=== PATIENT | male | born 1955 | race Caucasian/White ===

== ENCOUNTER 2016-07-17 08:55 | Emergency (ER) | payer OTHER ==
[2016-07-17] MEDS ORDERED: NS 0.9% 1000 ML* 1,000 ML IV ONE (12:24)
[2016-07-17 12:58] LABS: Hematocrit 42 % (42-52); Hemoglobin 14.4 g/dl (14.0-18.0); Mean Corpuscular HGB Conc 34 g/dl (31-36); Mean Corpuscular Hemoglobin 31 pg (27-31); Mean Corpuscular Volume 91 fL (80-94); Mean Platelet Volume 7 um3 (7.4-10.4); Red Blood Count 4.63 10^6/ul (4.0-5.4); Red Cell Distribution Width 13 % (10.5-15); White Blood Count 9.1 10^3/ul (3.5-10.8)
[2016-07-17 13:16] LABS: Urine Bacteria Absent (Absent); Urine Bilirubin Negative (Negative); Urine Glucose Negative (Negative); Urine Nitrite Negative (Negative)
[2016-07-17 13:18] LABS: ALT 20 U/L (7-52); AST 19 U/L (13-39); Albumin 4.3 g/dL (3.2-5.2); Alkaline Phosphatase 50 U/L (34-104); Amylase 44 U/L (29-103); Anion Gap 7 mmol/L (2-11); Blood Urea Nitrogen 7 mg/dL (6-24); C Reactive Protein < 1.00 mg/L (< 5.00); CO2 Carbon Dioxide 28 mmol/L (22-32); Calcium 9.4 mg/dL (8.6-10.3); Chloride 98 mmol/L (101-111); EGFR African American 115.5 (>60); EGFR Non-African American 89.8 (>60); Glucose 97 mg/dL (70-100); Lipase 38 U/L (11.0-82.0); Potassium 3.8 mmol/L (3.5-5.0); Sodium 133 mmol/L (133-145); Total Protein 7.3 g/dL (6.4-8.9)
[2016-07-17] MEDS ORDERED: Iohexol 300* (CONTRAST) 10 ML SDV IV ONE (13:43)
--- NOTE | 2016-07-17 14:50 | RAD ---
INDICATION: Abdominal pain and body aches. Recent antibiotics for UTI. Diagnosed with pancreatitis by primary care physician. COMPARISON: July 08, 2009 TECHNIQUE: Multidetector CT images were obtained from the lung bases to the ischial tuberosities with 105 mL Omnipaque 300 IV and oral contrast. Multiplanar reformation. REPORT: Mild dependent atelectasis at the RIGHT lung base. Unremarkable liver and gallbladder. Normal morphology pancreas. No focal pancreatic lesion, duct dilatation, or peripancreatic inflammatory change. Unremarkable spleen. Negative for CT abnormality of the upper GI. Mild gas and enteric contrast distention of jejunal small bowel loops in the LEFT abdomen without a suspicious transition point or obstruction to distal propagation of contrast most consistent with transient physiologic distention due to the enteric contrast bolus. Mild ileus not excluded. No focal small bowel lesions evident. Unremarkable inferiorly extending appendix. Mild diverticulosis of the sigmoid colon without findings of diverticulitis. Enteric contrast extends to the hepatic flexure of the colon. Negative for ascites or free air. Small fat-containing umbilical hernia without inflammatory change. Small fat-containing direct appearing RIGHT inguinal hernia without inflammatory change. 1.5 cm diameter RIGHT adrenal nodule only minimally increased in size compared with the 2009 exam. 1.5 x 1.3 cm LEFT adrenal nodule with only mild interval increase in size compared with the 2009 exam. Based on relative low density and absence of significant interval change since 2009 these lesions are consistent with benign adenomas. Symmetric renal contrast excretion. No focal renal lesions or hydronephrosis. Unremarkable ureters and urinary bladder. Symmetric seminal vesicles. Negative for lymphadenopathy. Mild atherosclerotic plaque of the abdominal aorta without aortic aneurysm. 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 Calcific and noncalcific plaque results in approximate 50% stenosis of the lumen at the level of the LEFT common iliac artery aneurysm. Multilevel lower thoracic and lumbar sacral spine small Schmorl node endplate herniations. Multilevel degenerative spondylosis and facet joint osteoarthritis. Few small pelvic bone islands. Negative for fracture or suspicious focal osseous lesion. IMPRESSION: 1. No abnormality of the pancreas or peripancreatic soft tissues to raise concern for pancreatitis. 2. Mild gas and enteric contrast distention of jejunal small bowel loops in the LEFT abdomen without a suspicious transition point or obstruction to distal propagation of contrast most consistent with transient physiologic distention due to the enteric contrast bolus. Mild ileus not excluded. 3. Normal appendix documented. 4. Mild colonic diverticulosis without findings of diverticulitis. 5. Small fat-containing direct appearing RIGHT inguinal hernia without inflammatory change. 6. Bilateral adrenal nodules most consistent with benign adenomas based on only mild interval change compared with the remote exam of July 08, 2009. 6. 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
[2016-07-17] MEDS ORDERED: methylPREDNISolone 125 MG* 2 ML VIAL IV ONE (14:54)
[2016-07-17] MEDS ORDERED: Albuterol/Ipratropium NEB.SOL* Albuterol 2.5 MG/Ipratropium 0.5 MG 3 ML INH SCH (15:00)
--- NOTE | 2016-07-17 15:26 | ED ---
Real Ram Rebecca, scribed for Austen Garcia MD on 07/17/16 at 1207 . Abdominal Pain/Male - HPI Summary HPI Summary: Pt is a 60 y/o M who presents to ED c/o abd pain. Pain began gradually 6 weeks ago and has been intermittent since onset. Pain is in the RLQ and LLQ without radiation and is currently ranked 7/10. Pain is characterized as cramping. Sx aggravated and alleviated by nothing. C/o N, bloating, decreased appetite and diffuse body aches. Denies V/D, constipation. No PSHx of appy or cholecystectomy. PSHx hernia repair. 1 month ago pt was treated for dx of UTI by [facility] with Abx and sx began to resolve, then returned. 3.5 weeks ago, pt was evaluated by PCP (Dr. Baeza) with a dx of prostatitis and was administered Abx for 2 weeks. That course of Abx ended 1.5 weeks ago and pt was feeling better. Current episode returned 1 week ago. - History of Current Complaint Chief Complaint: EDAbdPain Stated Complaint: BODY ACHES Time Seen by Provider: 07/17/16 12:06 Hx Obtained From: Patient Onset/Duration: Gradual Onset, Lasting Weeks - 6 weeks, Still Present Timing: Intermittent Severity Initially: Moderate Severity Currently: Moderate Pain Intensity: 7 Pain Scale Used: 0-10 Numeric Location: Discrete At: RLQ, Discrete At: LLQ Radiates: No Character: Cramping Aggravating Factor(s): Nothing Alleviating Factor(s): Nothing Associated Signs And Symptoms: Positive: Decreased Appetite, Nausea, Other - Bloating, diffuse body aches. Negative: Constipation, Vomiting, Diarrhea - Allergies/Home Medications Allergies/Adverse Reactions: Allergies Allergy/AdvReac Type Severity Reaction Status Date / Time No Known Allergies Allergy Verified 06/04/16 13:51 PMH/Surg Hx/FS Hx/Imm Hx Endocrine/Hematology History: Denies: Hx Diabetes GI History: Reports: Other GI Disorders - hernia s/p repair History: Denies: Hx Renal Disease - Surgical History Surgery Procedure, Year, and Place: CARPAL TUNNEL SURGERY, ELBOW SURGERY RT UPPER EXT, HERNIA REPAIR Infectious Disease History: No Infectious Disease History: Denies: Traveled Outside the [place] in Last 30 Days - Family History Known Family History: Negative: Cardiac Disease, Hypertension - Social History Alcohol Use: Daily Alcohol Amount: beer "amount varies" Hx Substance Use: No Substance Use Type: Reports: None Hx Tobacco Use: Yes Smoking Status (MU): Current Every Day Smoker Review of Systems Positive: Abdominal Pain - RLQ and LLQ, Nausea, Other - Bloating, decreased appetite; Denies constipation. Negative: Vomiting, Diarrhea Positive: Arthralgia - Diffuse body aches All Other Systems Reviewed And Are Negative: Yes Physical Exam - Summary Physical Exam Summary: VITAL SIGNS: Reviewed. GENERAL: Patient is a well developed and nourished male who is lying comfortable in the stretcher. Patient is not in any acute respiratory distress. HEAD AND FACE: Normocephalic and atraumatic. EYES: PERRLA, EOMI x 2, No injected conjunctiva. EARS: Hearing grossly intact. Ear canals and tympanic membranes are WNL. MOUTH: Oropharynx within normal limits. NECK: Supple, trachea is midline, no adenopathy, no JVD. CHEST: Symmetric, no tenderness at palpation LUNGS: Clear to auscultation bilaterally. No wheezing or crackles. CVS: RRR,, S1 and S2 present, no murmurs or gallops appreciated. ABDOMEN: Soft, diffuse abdomnal tenderness. . No signs of distention. Positive bowel sounds. No rebound no guarding, and no masses palpated. No abdominal bruit or pulsations. EXTREMITIES: FROM in all major joints, no edema, no cyanosis or clubbing. NEURO: Alert and oriented x 3. No acute neurological deficits. Speech is normal. SKIN: Dry and warm Vital Signs On Initial Exam: Initial Vitals Temp Pulse Resp BP Pulse Ox 98 F 92 16 149/67 98 07/17/16 08:57 07/17/16 08:57 07/17/16 08:57 07/17/16 08:57 07/17/16 08:57 Diagnostics - Vital Signs Vital Signs Temp Pulse Resp BP Pulse Ox 07/17/16 11:28 98.3 F 78 16 136/86 99 07/17/16 08:57 98 F 92 16 149/67 98 - Laboratory Result Diagrams: 07/17/16 12:31 07/17/16 12:31 Lab Statement: Any lab studies that have been ordered have been reviewed, and results considered in the medical decision making process. - CT CT Abd/Pel CT Interpretation Completed By: Radiologist - 1. No abnormality of the pancreas or peripancreatic soft tissues to raise concern for pancreatitis. 2. Mild gas and enteric contrast distention of jejunal small bowel loops in the LEFT abdomen without a suspicious transition point or obstruction to distal propagation of contrast most consistent with transient physiologic distention due to the enteric contrast bolus. Mild ileus not excluded. 3. Normal appendix documented. 4. Mild colonic diverticulosis without findings of diverticulitis. 5. Small fat-containing direct appearing RIGHT inguinal hernia without inflammatory change. 6. Bilateral adrenal nodules most consistent with benign adenomas based on only mild interval change compared with the remote exam of July 08, 2009. Re-Evaluation - Re-Evaluation First Eval Re-Evaluation Time: 15:16 Change: Improved Comment: Pt is feeling significantly better. Abdominal Pain Fem Course/Dx - Course Assessment/Plan: 60 y/o M who presents to ED with a CC of intermittent abdominal pain for approximately 1.5 months. He denies diarrhea or constipation. Denies any N/V. Pain is more discomfort than tenderness. Blood work is found to be within normal limits. I decided to do Abd/Pel CT to r/o any type of intra-abdominal pathologies such as diverticulitis, colitis, or prostatitis seeing as pt has Hx of prostatitis. Pt declined a rectal exam. Abd/ Pel CT shows mild fusiform aneurysm of 1.7 cm in the L common artery. The rest of the results are as above. At this point the pt is feeling better. Will follow up with PCP and cloth carrier. I discussed all the findings and test results with the patient and patient. Patient was instructed to return to the emergency room immediately if any of the symptoms return or worsens. They understand and agree. They were explained the possibility of an early abdominal pathology which was not detected at this time despite the physical exam and testing. They understand and agree. Abdominal exam before discharge: Soft,NT. No signs of distention. BS present. No rebound no guarding, and no masses palpated. Patient is alert and oriented. Patient is hemodynamically stable. Patient is to follow up with primary care physician in the next 24 hours. Patient and patients parents agree and understands. - Diagnoses Differential Diagnosis/HQI/PQRI: Constipation, Diverticulitis Provider Diagnoses: Abdominal pain, AAA (abdominal aortic aneurysm), Ileus Discharge - Discharge Plan Condition: Stable Disposition: HOME Patient Education Materials: Abdominal Aortic Aneurysm (GEN), Ileus (ED) Forms: *Work Release Referrals: Alistair Moreau MD [Medical Doctor] - 3 Days (Follow up with Dr. Moreau, cloth carrier, within the next 3 days. ) Miriam Baeza NP [Primary Care Provider] - 3 Days (Follow up with Dr. Baeza, your primary care physician, within the next 3 days. ) Additional Instructions: Return to the ED for any returning or worsening symptoms. The documentation as recorded by the Real watkins Rebecca accurately reflects the service I personally performed and the decisions made by , Austen Garcia MD.
[2016-07-17 15:45] VITALS: BP 132/80
== END 2016-07-17 15:44 | disposition home or self-care (01) ==
LOC: ED 08:55
DX: R10.30 Lower abdominal pain, unspecified (principal); I71.4 Abdominal aortic aneurysm, without rupture; F17.200 Nicotine dependence, unspecified, uncomplicated; R11.0 Nausea; K56.7 Ileus, unspecified
CPT/HCPCS: 36415; 74177; 80053; 81003; 81015; 82150; 83605; 83690; 85025; 86140; 87086; 96360; 99282; Q9967

== ENCOUNTER 2018-04-06 15:48 | Emergency (ER) | payer OTHER ==
--- NOTE | 2018-04-06 17:13 | RAD ---
INDICATION: Back pain shortness of breath x1 week COMPARISON: Chest x-ray dated July 08, 2009 TECHNIQUE: PA and lateral views of the chest were obtained. FINDINGS: The heart and mediastinum are normal in size and contour. There is been a mild increase in the reticulonodular density seen overlying the bilateral lungs relative to the 2009 chest x-ray. There is no focal or lobar consolidation. Visualized bones are normal for the patient's age. There is no radiographic evidence of free air beneath the diaphragm IMPRESSION: PARENCHYMAL DENSITIES OVERLYING THE BILATERAL LUNGS COULD BE DUE TO VASCULAR CONGESTION IN AN ACUTE PRESENTATION OR BE DUE TO EARLY INTERSTITIAL LUNG DISEASE AND A MORE CHRONIC PRESENTATION.
[2018-04-06 17:15] LABS: ABS Basophils 0.1 10^3/ul (0-0.2); ABS Eosinophils 0.1 10^3/ul (0-0.6); ABS Lymphocytes 1.6 10^3/ul (1.0-4.8); ABS Monocytes 0.7 10^3/ul (0-0.8); ABS Neutrophils 4.9 10^3/ul (1.5-7.7); ABS Nucleated RBC 0 10^3/ul; Eosinophil % 0.8 % (0-6); Hematocrit 39 % (42-52); Hemoglobin 13.4 g/dl (14.0-18.0); Lymphocyte % 21.2 % (25-47); Mean Corpuscular HGB Conc 34 g/dl (31-36); Mean Corpuscular Hemoglobin 32 pg (27-31); Mean Corpuscular Volume 93 fL (80-94); Mean Platelet Volume 7.3 um3 (7.4-10.4); Nucleated Red Blood Cells % 0.1; Platelet Count 262 10^3/ul (150-450); Red Blood Count 4.17 10^6/ul (4.00-5.40); Red Cell Distribution Width 14 % (10.5-15); White Blood Count 7.3 10^3/ul (3.5-10.8)
[2018-04-06 17:21] LABS: INR 0.96 (0.77-1.02)
--- NOTE | 2018-04-06 17:22 | ED ---
Shortness of Breath - HPI Summary HPI Summary: Patient complains of back pain bilaterally, intermittent exertional SOB, weakness, "feeling crappy" 2 weeks. 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 States back pain comes in waves that can produce nausea. Denies fever, cough, sore throat, CP, as V/D, abdominal pain, change in urine, change in BM, radiation of pain down the legs. Medical history is HTN for which she does not take medication. Also states he has history of "aneurysm" but does not remember details. Patient does not see PCP regularly. Patient is smoker, admits to daily EtOH less than a sixpack , denies illegal drug use - History of Current Complaint Chief Complaint: EDBackInjuryPain Time Seen by Provider: 04/06/18 16:09 Hx Obtained From: Patient Onset/Duration: Gradual Onset Timing: Intermittent Episodes Lasting: Current Severity: Moderate Dyspnea At: Exertion Associated Signs & Symptoms: Negative - Allergy/Home Medications Allergies/Adverse Reactions: Allergies Allergy/AdvReac Type Severity Reaction Status Date / Time No Known Allergies Allergy Verified 04/06/18 16:24 PMH/Surg Hx/FS Hx/Imm Hx Endocrine/Hematology History: Denies: Hx Anticoagulant Therapy, Hx Diabetes Cardiovascular History: Denies: Hx Cardiac Arrest GI History: Reports: Other GI Disorders - hernia s/p repair History: Denies: Hx Dialysis, Hx Renal Disease Neurological History: Denies: Hx CVA - Surgical History Surgery Procedure, Year, and Place: CARPAL TUNNEL SURGERY, ELBOW SURGERY RT UPPER EXT, HERNIA REPAIR - Immunization History Immunizations Up to Date: Yes Infectious Disease History: No Infectious Disease History: Denies: Traveled Outside the [place] in Last 30 Days - Family History Known Family History: Positive: None Negative: Cardiac Disease, Hypertension Family History: R & n/C - Social History Alcohol Use: Daily Alcohol Amount: beer "amount varies" Hx Substance Use: No Substance Use Type: Reports: None Hx Tobacco Use: Yes Smoking Status (MU): Current Every Day Smoker Review of Systems Constitutional: Negative Eyes: Negative ENT: Negative Cardiovascular: Negative Positive: Shortness Of Breath Gastrointestinal: Negative Genitourinary: Negative Musculoskeletal: Other Positive: Myalgia Skin: Negative Neurological: Negative Psychological: Normal All Other Systems Reviewed And Are Negative: Yes Physical Exam - Summary Physical Exam Summary: PMS intact distally in bilateral lower extremity is. Patient able to ambulate and move all extremities without indication of pain or weakness. No pain or tenderness to palpation of the paraspinal muscles. Patient flexes and extends at hips without indication of pain. Lung sounds clear to auscultation bilaterally. Sensation speaking in full sentences, no work of breathing noted. Patient calm, alert and oriented. Triage Information Reviewed: Yes Vital Signs On Initial Exam: Initial Vitals Temp Pulse Resp BP Pulse Ox 98.6 F 89 16 161/93 97 04/06/18 15:53 04/06/18 15:53 04/06/18 15:53 04/06/18 15:53 04/06/18 15:53 Vital Signs Reviewed: Yes Appearance: Positive: Well-Appearing Skin: Positive: Warm Head/Face: Positive: Normal Head/Face Inspection Eyes: Positive: Normal Neck: Positive: Supple Respiratory/Lung Sounds: Positive: Clear to Auscultation Cardiovascular: Positive: Normal Abdomen Description: Positive: Nontender Musculoskeletal: Positive: Normal Neurological: Positive: Normal Psychiatric: Positive: Normal AVPU Assessment: Alert - [place] Coma Scale Best Eye Response: 4 - Spontaneous Best Motor Response: 6 - Obeys Commands Best Verbal Response: 5 - Oriented Coma Scale Total: 15 Diagnostics - Vital Signs Vital Signs Temp Pulse Resp BP Pulse Ox 04/06/18 15:53 98.6 F 89 16 161/93 97 - Laboratory Lab Results: Lab Results 04/06/18 Range/Units 16:47 WBC 7.3 (3.5-10.8) 10^3/ul RBC 4.17 (4.00-5.40) 10^6/ul Hgb 13.4 L (14.0-18.0) g/dl Hct 39 L (42-52) % MCV 93 (80-94) fL MCH 32 H (27-31) pg MCHC 34 (31-36) g/dl RDW 14 (10.5-15) % Plt Count 262 (150-450) 10^3/ul MPV 7.3 L (7.4-10.4) um3 Neut % (Auto) 67.7 (38-83) % Lymph % (Auto) 21.2 L (25-47) % [place] % (Auto) 9.5 H (0-7) % Eos % (Auto) 0.8 (0-6) % Baso % (Auto) 0.8 (0-2) % Absolute Neuts (auto) 4.9 (1.5-7.7) 10^3/ul Absolute Lymphs (auto) 1.6 (1.0-4.8) 10^3/ul Absolute Monos (auto) 0.7 (0-0.8) 10^3/ul Absolute Eos (auto) 0.1 (0-0.6) 10^3/ul Absolute Basos (auto) 0.1 (0-0.2) 10^3/ul Absolute Nucleated RBC 0 10^3/ul Nucleated RBC % 0.1 Result Diagrams: 04/06/18 16:47 04/06/18 16:47 Lab Statement: Any lab studies that have been ordered have been reviewed, and results considered in the medical decision making process. - Radiology cxr Xray Interpretation: Positive (See Comments) - Parenchymal densities overlying the bilateral lungs could be due to vascular congestion and an acute presentation or be due to early interstitial lung disease and a more chronic presentation - CT cta chest CT Interpretation: No Acute Changes - Mild centrilobular emphysema. Incompletely characterized left adrenal nodule measuring 2.8 x 2.0 cm. No visible acute PE. Aorta: no acute findings no thoracic aortic aneurysm. - EKG 1 Cardiac Rate: NL EKG Rhythm: Sinus Rhythm ST Segment: Normal Ectopy: None EKG Interpretation: LVH Course/Dx - Course Course Of Treatment: Patient complains of back pain bilaterally, intermittent exertional SOB, weakness, "feeling crappy" 2 weeks. 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 States back pain comes in waves that can produce nausea. Denies fever, cough, sore throat, CP, as V/D, abdominal pain, change in urine, change in BM, radiation of pain down the legs. Medical history is HTN for which she does not take medication. Also states he has history of "aneurysm" but does not remember details. Patient does not see PCP regularly. Patient is smoker, admits to daily EtOH less than a sixpack, denies illegal drug use. Physical exam:PMS intact distally in bilateral lower extremity is. Patient able to ambulate and move all extremities without indication of pain or weakness. No pain or tenderness to palpation of the paraspinal muscles. Patient flexes and extends at hips without indication of pain. Lung sounds clear to auscultation bilaterally. Sensation speaking in full sentences, no work of breathing noted. Patient calm , alert and oriented. Vital signs within normal limits. CTA chest unremarkable. Chest x-ray unremarkable except for emphysema. EKG unremarkable. Back pain Diagnosis likely muscle spasm. Shortness of breath related to emphysema and chronic smoking. - Diagnoses Provider Diagnoses: Back spasm, Emphysema of lung Discharge - Sign-Out/Discharge Documenting (check all that apply): Patient Departure - Discharge Plan Condition: Stable Disposition: HOME Prescriptions: Cyclobenzaprine TAB* [Flexeril 10 MG TAB*] 10 mg PO TID PRN 5 Days #15 tab PRN Reason: Pain Patient Education Materials: Emphysema (ED), COPD (Chronic Obstructive Pulmonary Disease) (ED), Muscle Spasm (ED) Referrals: Miriam Baeza LUBRICATING SPECIALIST [Primary Care Provider] - Additional Instructions: Stop smoking. Follow-up with primary care of elevated blood pressure. Return to the ED for any new or worsening symptoms - Billing Disposition and Condition Condition: STABLE Disposition: Home
[2018-04-06] MEDS ORDERED: Iohexol 350* (CONTRAST) 500 ML MDV IV ONE (17:34)
--- NOTE | 2018-04-06 18:35 | RAD ---
EXAM: CT Angiography Chest With Intravenous Contrast CLINICAL HISTORY: 62 years old, male; Pain and signs and symptoms; Shortness of breath; Other: Back; Additional info: SOB, back pain, HX of aneurysm TECHNIQUE: Axial computed tomographic angiography images of the chest with intravenous contrast using pulmonary embolism protocol. All CT scans at this facility use at least one of these dose optimization techniques: automated exposure control; mA and/or kV adjustment per patient size (includes targeted exams where dose is matched to clinical indication); or iterative reconstruction. 3D and MIP reconstructed images were created and reviewed. Coronal and sagittal reformatted images were created and reviewed. CONTRAST: 100 mL of OMNIPAQUE 350 administered intravenously. COMPARISON: No relevant prior studies available. FINDINGS: Pulmonary arteries: No visible acute pulmonary embolism. Aorta: No acute findings. No thoracic aortic aneurysm. Lungs: There is mild centrilobular emphysema. There is mild bibasilar and bilateral dependent atelectatic change. No mass. Pleural space: Unremarkable. No significant effusion. No pneumothorax. Heart: Unremarkable. No cardiomegaly. No significant pericardial effusion. No evidence of RV dysfunction. Bones/joints: There is diffuse osteopenia and there are degenerative changes of the spine. There are degenerative changes of the spine. No acute fracture. No dislocation. Soft tissues: Unremarkable. Lymph nodes: Unremarkable. No enlarged lymph nodes. Adrenals: There is an incompletely characterized left adrenal nodule, measuring 2.8 x 2.0 cm. May be more fully characterized with dedicated CT or MRI adrenal mass protocol. There is a right adrenal nodule of attenuation characteristics consistent with lipid rich adrenal adenoma measuring 2.2 x 1.7 cm. IMPRESSION: 1. There is mild centrilobular emphysema. 2. There is an incompletely characterized left adrenal nodule, measuring 2.8 x 2.0 cm. May be more fully characterized with dedicated CT or MRI adrenal mass protocol. 3. No visible acute pulmonary embolism.
[2018-04-06] MEDS ORDERED: Cyclobenzaprine TAB* 10 MG PO ONE (19:16)
[2018-04-06 19:47] VITALS: BP 187/93
== END 2018-04-06 19:47 | disposition home or self-care (01) ==
LOC: ED 15:48
DX: M62.830 Muscle spasm of back (principal); J43.2 Centrilobular emphysema; I10 Essential (primary) hypertension; E27.9 Disorder of adrenal gland, unspecified; F17.200 Nicotine dependence, unspecified, uncomplicated; Z86.79 Personal history of other diseases of the circulatory system
CPT/HCPCS: 36415; 71046; 71275; 80053; 83605; 83880; 84484; 85025; 85610; 86140; 93005; 99282; A9270-GY; Q9967

== ENCOUNTER 2018-07-15 10:28 | Observation (INO) | payer OTHER ==
--- NOTE | 2018-07-15 11:00 | ED ---
HPI Chest Pain - HPI Summary HPI Summary: This pt is a 62 y/o male presenting to [facility] c/o intermittent chest pain since 07/08/18. Pt reports since 07/08/18 pt has felt nauseous with diaphoresis and hot flashes. He describes chest pain radiating to his back. Pt states he has upper back pain around bilateral shoulder blades. His chest pain is aggravated on exertion. Today he notes that while at work pt became dizzy and then had chest pain. Pt left work to come to the ED. Denies fever, chills, abd pain, urinary or bowel dysfunction, SOB. Currently he denies any chest pain. Pt has been treated for back pain in the past with pain medications, including Naproxen, prescribed by his PCP (Miriam Baeza NP). He no longer takes these medications. 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 He admits to tobacco use, 1 PPD. Denies FHx of PA. 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 Denies having had stress test in the past. - History of Current Complaint Chief Complaint: EDChestPainROMI Time Seen by Provider: 07/15/18 10:46 Hx Obtained From: Patient Onset/Duration: Started Days Ago, Still Present Timing: Lasting Days Initial Severity: Moderate Current Severity: None Pain Intensity: 0 Pain Scale Used: 0-10 Numeric Chest Pain Location: Diffuse Chest Pain Radiates: Yes Chest Pain Radiates To:: Back Aggravating Factor(s): Nothing Alleviating Factor(s): Nothing Associated Signs and Symptoms: Positive: Chest Pain, Dizziness, Diaphoresis, Nausea, Back Pain. Negative: Shortness of Breath, Fever, Chills, Abdominal Pain , Vomiting, Other: - urinary or bowel dysfunction - Allergy/Home Medications Allergies/Adverse Reactions: Allergies Allergy/AdvReac Type Severity Reaction Status Date / Time No Known Allergies Allergy Verified 07/15/18 10:36 Home Medications: Home Medications Ascorbic Acid TAB* [Vitamin C TAB*] 500 mg PO DAILY 07/15/18 [History Confirmed 07/15/18] Lisinopril/HCTZ 20/25(NF) [Zestoretic 20/25(NF)] 1 tab PO DAILY 07/15/18 [ History Confirmed 07/15/18] Vitamin B Complex CAP* [B Complex CAP*] 1 cap PO DAILY 07/15/18 [History Confirmed 07/15/18] PMH/Surg Hx/FS Hx/Imm Hx Endocrine/Hematology History: Denies: Hx Anticoagulant Therapy, Hx Diabetes Cardiovascular History: Reports: Hx Hypertension, Other Cardiovascular Problems/ Disorders - heart murmur Denies: Hx Cardiac Arrest GI History: Reports: Other GI Disorders - hernia s/p repair History: Denies: Hx Dialysis, Hx Renal Disease Neurological History: Denies: Hx CVA - Surgical History Surgery Procedure, Year, and Place: CARPAL TUNNEL SURGERY, ELBOW SURGERY RT UPPER EXT, HERNIA REPAIR Infectious Disease History: No Infectious Disease History: Denies: Traveled Outside the [place] in Last 30 Days - Family History Known Family History: Negative: Cardiac Disease, Hypertension Family History: No FHx of PA. - Social History Alcohol Use: Daily Alcohol Amount: beer "amount varies" Hx Substance Use: No Substance Use Type: Reports: None Hx Tobacco Use: Yes Smoking Status (MU): Current Every Day Smoker Review of Systems Constitutional: Other - POS: hot flashes Positive: Skin Diaphoresis. Negative: Fever, Chills Positive: Chest Pain Negative: Shortness Of Breath Positive: Nausea. Negative: Abdominal Pain, Vomiting Musculoskeletal: Other - POS: back pain Neurological: Other - POS: dizziness All Other Systems Reviewed And Are Negative: Yes Physical Exam - Summary Physical Exam Summary: GENERAL: Patient is a well developed and nourished male who is lying comfortable in the stretcher. Patient is not in any acute respiratory distress. HEAD AND FACE: Normocephalic EYES: PERRLA, EOMI x 2. EARS: Hearing grossly intact. MOUTH: Oropharynx within normal limits. NECK: Supple, trachea is midline, no adenopathy, no JVD, no carotid bruit. CHEST: Symmetric, no tenderness at palpation LUNGS: Clear to auscultation bilaterally. No wheezing or crackles. CVS: Regular rate and rhythm, S1 and S2 present, no murmurs or gallops appreciated. ABDOMEN: Soft, non-tender. Bowel sounds are normal. No abdominal abnormal pulsations. EXTREMITIES: Full ROM in all major joints, no edema, no cyanosis or clubbing. NEURO: Alert and oriented x 3. No acute neurological deficits. Speech is normal and follows commands. SKIN: Dry and warm Triage Information Reviewed: Yes Vital Signs On Initial Exam: Initial Vitals Temp Pulse Resp BP Pulse Ox 97.9 F 104 16 140/114 99 07/15/18 10:34 07/15/18 10:34 07/15/18 10:34 07/15/18 10:34 07/15/18 10:34 Vital Signs Reviewed: Yes Diagnostics - Vital Signs Vital Signs Temp Pulse Resp BP Pulse Ox 07/15/18 10:34 97.9 F 104 16 140/114 99 - Laboratory Result Diagrams: 07/15/18 11:13 07/15/18 11:13 Lab Statement: Any lab studies that have been ordered have been reviewed, and results considered in the medical decision making process. - Radiology Chest XR Radiology Interpretation Completed By: Radiologist Summary of Radiographic Findings: IMPRESSION: Hyperinflation. No active cardiopulmonary disease. Dr. Painting has reviewed this report. - EKG 11:07 Cardiac Rate: NL - at 90 bpm EKG Rhythm: Sinus Rhythm Summary of EKG Findings: Early R wave progression Re-Evaluation - Re-Evaluation First Eval Re-Evaluation Time: 11:58 Change: Unchanged Comment: I reviewed admission plan with the pt. He understands and agrees. Chest Pain Course/Dx - Course Assessment/Plan: Pt is a 62 y/o male presenting to [facility] c/o intermittent chest pain since 07/08/18. Pt reports since 07/08/18 pt has felt nauseous with diaphoresis and hot flashes. Workup is remarkable with WBC of 11.4, hemoglobin of 13.6, hematocrit of 39, sodium of 128, creatinine of 1.71. Troponin is negative at 0.01. The patient will be admitted. Case discussed with hospitalist, Dr. Fields, who accepted the pt for admission. I discussed results with patient. The patient agrees with this plan. - Diagnoses Provider Diagnoses: Chest pain - Provider Notifications Discussed Care Of Patient With: Mandi Fields - hospitalist Time Discussed With Above Provider: 12:04 Instructed by Provider To: Admit As Inpatient Discharge - Sign-Out/Discharge Documenting (check all that apply): Patient Departure - Admit to [facility] - Discharge Plan Condition: Stable Disposition: ADMITTED TO [facility] - Billing Disposition and Condition Condition: STABLE Disposition: Admitted to [facility] - Attestation Statements Document Initiated by Maiibmichelle: Yes Documenting Scribe: Allison Rosen Provider For Whom Maiibmichelle is Documenting (Include Credential): Alexandr Painting MD Scribe Attestation: Allison Ram, scribed for Alexandr Painting MD on 07/15/18 at 1808. Scribe Documentation Reviewed: Yes Provider Attestation: The documentation as recorded by the Allison watkins accurately reflects the service I personally performed and the decisions made by me, Alexandr Painting MD Status of Scribe Document: Viewed
[2018-07-15] MEDS ORDERED: Nitroglycerin TAB 0.4 MG* 0.4 MG TAB SL ONE (11:01)
[2018-07-15] MEDS ORDERED: Aspirin 81 mg CHEW TAB* 81 MG TAB.CHEW PO ONE ×2 (11:01→13:32)
[2018-07-15 11:22] LABS: ABS Basophils 0 10^3/ul (0-0.2); ABS Eosinophils 0.1 10^3/ul (0-0.6); ABS Lymphocytes 1.4 10^3/ul (1.0-4.8); ABS Monocytes 1.1 10^3/ul (0-0.8); ABS Neutrophils 8.8 10^3/ul (1.5-7.7); ABS Nucleated RBC 0 10^3/ul; Eosinophil % 0.5 %; Hematocrit 39 % (42-52); Hemoglobin 13.6 g/dl (14.0-18.0); Lymphocyte % 12.1 %; Mean Corpuscular HGB Conc 34 g/dl (31-36); Mean Corpuscular Hemoglobin 32 pg (27-31); Mean Corpuscular Volume 93 fL (80-94); Mean Platelet Volume 6.5 fL (7.4-10.4); Nucleated Red Blood Cells % 0.1; Platelet Count 337 10^3/ul (150-450); Red Blood Count 4.25 10^6/ul (4.00-5.40); Red Cell Distribution Width 13 % (10.5-15); White Blood Count 11.4 10^3/ul (3.5-10.8)
[2018-07-15 11:31] LABS: Activated Partial Thrombo Time 30.4 seconds (26.0-36.3); INR 0.95 (0.77-1.02)
[2018-07-15 11:41] LABS: Albumin 4.2 g/dL (3.2-5.2); Albumin/Globulin Ratio 1.4 (1-3); BUN/Creatinine Ratio 8.8 (8-20); Calcium 9.6 mg/dL (8.6-10.3); EGFR Non-African American 40.9 (>60); Globulin 2.9 g/dL (2-4); Magnesium 2.1 mg/dL (1.9-2.7); Potassium 4.2 mmol/L (3.5-5.0); Total Bilirubin 0.6 mg/dL (0.2-1.0); Total Protein 7.1 g/dL (6.4-8.9)
[2018-07-15] MEDS ORDERED: NS 0.9% 1000 ML* 1,000 ML IV ONE (11:50)
[2018-07-15 11:55] LABS: Urine Appearance Cloudy; Urine Bilirubin Negative (Negative); Urine Blood Negative (Negative); Urine Color Amber; Urine Glucose Negative (Negative); Urine Ketones Negative (Negative); Urine Nitrite Negative (Negative); Urine Protein Negative (Negative); Urine Specific Gravity 1.013 (1.010-1.030); Urine Urobilinogen Negative (Negative)
[2018-07-15] MEDS ORDERED: Acetaminophen TAB* 325 MG PO PRN (13:20)
[2018-07-15] MEDS ORDERED: Thiamine IV* 100 MG/ML 2 ML VIAL IM ONE (13:32)
[2018-07-15] MEDS ORDERED: LORazepam TAB(*) 1 MG PO SCH (14:00)
[2018-07-15] MEDS: Folic Acid TAB* 1 MG PO SCH (15:32)
[2018-07-15] MEDS: Enoxaparin(*) 40 MG/0.4 ML SYR SUBCUT SCH (15:32)
[2018-07-15] MEDS: Multivitamins/Minerals TAB PO SCH (15:32)
[2018-07-16] MEDS ORDERED: NS 0.9% 1000 ML* 1,000 ML IV SCH ×2 (00:45)
--- NOTE | 2018-07-16 00:47 | HP ---
CC: Miriam Baeza NP * HISTORY AND PHYSICAL: DATE OF ADMISSION: 07/15/18 PROVIDER: Delphine Stoll NP. ATTENDING PHYSICIAN: Dr. Mandi Fields * (dictated by Delphine Stoll NP). PRIMARY CARE PROVIDER: Miriam Baeza NP. CHIEF COMPLAINT: Chest pain. HISTORY OF PRESENT ILLNESS: Mr. Miller is a 62-year-old male with a past medical history significant for hypertension, who reports that in June he was treated for back pain, upper and lower back pain, with Naproxen. He states that he finished his treatment on 07/02/18 and his pain resolved, he was feeling well. He states that he went back to work and on 07/08/18, the back pain returned. He felt nauseated. He felt as though since 07/08/18, he has had a loss of appetite, increased fatigue, decreased energy, increased shortness of breath and leg weakness with ambulation. The patient reports that he was at work today and felt dizzy, flushed, and broke out in a cold sweat. He had chest pain. He reports that he did become more short of breath with exertion and that his chest pain was worse when he was smoking. The patient does report that he has bilateral leg pain when ambulating up stairs and does feel short of breath by the time he reaches the top of the stairs. He does report that today's pain was in the center of his chest. It was an aching type pressure that was associated worse with smoking. He says that the pain lasts for minutes and it comes and goes in waves and is associated with hot flashes. The patient denies any fever or unintended weight loss. He does report chest pain. Denies any edema, cough, hemoptysis. He does report shortness of breath , worse with exertion. He does report nausea and diaphoresis with the chest pain, as well as hot flashes. Denies any diarrhea or abdominal pain, gross hematuria, dysuria, focal weakness or sensory loss. Denies any visual complaints. Denies any dysphagia, arthralgias, myalgias, rashes, lesions, psychosis or anxiety. The patient had routine lab work drawn in the emergency room and due to his concern of chest pain, we were asked to see and evaluate him to rule out acute coronary syndrome. PAST MEDICAL HISTORY: Hypertension. PAST SURGICAL HISTORY: History of hernia repair. HOME MEDICATIONS: Include: 1. Lisinopril/hydrochlorothiazide 20/25, one tablet p.o. daily. 2. Ascorbic acid 500 mg p.o. daily. 3. Milk thistle seed extract 140 mg p.o. daily. 4. Vitamin B complex 1 cap daily. 5. Vitamin D 2000 units p.o. daily. ALLERGIES: No known drug allergies. FAMILY HISTORY: Grandfather from cardiac arrest at age 78. No diabetes. No reported history of cancer. SOCIAL HISTORY: The patient smokes [id number] packs of cigarettes daily for the past 38 years. He drinks 6 to 10 beers daily. He does occasionally smoke marijuana. 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 He lives alone. Surrogate decision maker in the event he is unable to make his own decision is his mother. He is a full code. REVIEW OF SYSTEMS: A 14-point review of systems was completed. All pertinent positives are as per HPI. The rest of the review of systems were all negative. PHYSICAL EXAMINATION GENERAL: At this time, Mr. Miller is a 62-year-old male. He appears in no acute distress, sitting on the stretcher in the emergency room. VITAL SIGNS: Blood pressure 104/66, heart rate 86, respirations 16, O2 saturation 96%, temperature was 97.9. HEENT: Head is atraumatic, normocephalic. Eyes: EOMs are intact. Sclerae anicteric and not pale. Oral mucosa appear to be moist. NECK: Supple. LUNGS: Clear to auscultation bilaterally. No wheezes, rales or rhonchi. CARDIAC: S1 and S2. Regular rate and rhythm. No murmurs, rubs or gallops. ABDOMEN: Soft, flat, nontender. Bowel sounds are present x4. EXTREMITIES: Pedal pulses are +2 bilaterally. He is able to move all 4 extremities with 5/5 strength. NEUROLOGIC: He is awake, alert, and oriented x3. Hand instructor product inspection are equal. Tongue is midline. Speech is clear. There is no gross focal deficits. SKIN: Intact. DIAGNOSTIC STUDIES/LAB DATA: WBCs are 11.4, RBCs 4.25, hemoglobin 13.6, hematocrit was 39, platelet count was 337. INR was 0.95, D-dimer was less than 200. Sodium 128, potassium 4.2, chloride 91, carbon dioxide was 26, creatinine 1.71. Troponin was 0.01 x2. BNP was 49. Lactic acid was 1.5. Magnesium was 2.1. Chest x-ray: Hyperinflation, no active cardiopulmonary disease. He did have an EKG, showed sinus rhythm at a rate of 90. ASSESSMENT AND PLAN: Mr. Miller is a 62-year-old male with a past medical history significant for hypertension, who presented to the emergency room with complaints of chest pain and shortness of breath. We were asked to see and evaluate him for admission to rule out acute coronary syndrome. 1. Chest pain: The patient will be admitted under observation to rule out acute coronary syndrome. Her PEYTON score is 1, giving him a 5% risk of 14-day all cause mortality, needing urgent revascularization. The patient did have aspirin 324 in the emergency room. I will place him on telemetry. We will watch him on telemetry overnight. We will continue to trend his troponins. He will have a repeat EKG in the morning. I will order a nuclear exercise stress test for the morning. I will continue him on aspirin 81 mg p.o. daily. I will also order lipid panel for the morning. 2. Alcohol abuse: The patient does drink on a daily basis, 6 to [address] him on WAM protocol and he can have Ativan as needed. I will give him folic acid, thiamine, and multivitamin. 3. Tobacco abuse: I will give him nicotine inhaler and nicotine patch to assist with smoking cessation. 4. DVT prophylaxis: I will place him on Lovenox 40 mg subcu q.24 hours. 5. Code status: He is a full code. 6. Fluids, electrolytes and nutrition: He can have a heart-healthy, no- caffeine diet. TIME SPENT: Time spent on this admission was 60 minutes, greater than half that time was spent [id number] with the patient obtaining my history and physical, the other half of the time was spent going over my plan of care and implementing my plan of care. I have discussed this with my attending, Dr. Mandi Fields, and she is in agreement with my plan. DELPHINE STOLL, SLASHER RUNNER [id number]/[facility] #: [id number] RAQUEL
[2018-07-16] MEDS: Nicotine Inhaler* 10 MG AMP INH PRN ×2 (01:38→10:29)
[2018-07-16] MEDS ORDERED: Mouth Piece, Nicotine* 1 EACH CARTRIDGE INH ONE (02:00)
[2018-07-16] MEDS ORDERED: Cholecalciferol TAB* 1000 UNITS PO SCH (09:00)
[2018-07-16] MEDS ORDERED: Thiamine TAB* 100 MG TAB PO SCH (09:00)
[2018-07-16] MEDS ORDERED: Hydrochlorothiazide TAB* 25 MG PO SCH (09:00)
[2018-07-16] MEDS ORDERED: Lisinopril TAB* 10 MG PO SCH (09:00)
[2018-07-16] MEDS ORDERED: Ascorbic Acid TAB* 500 MG PO SCH (09:00)
[2018-07-16] MEDS ORDERED: Nicotine PATCH 21 MG/24 HR* PATCH TRANSDERM SCH (09:00)
[2018-07-16] MEDS ORDERED: Aspirin EC TAB* 81 MG TAB.EC PO SCH (09:00)
[2018-07-16] MEDS ORDERED: Lisinopril/HCTZ 20/25(NF) TAB PO SCH (09:00)
[2018-07-16] MEDS ORDERED: Regadenoson* 0.4 MG/5 ML SYRINGE ONE (09:15)
[2018-07-16] MEDS: Folic Acid TAB* 1 MG PO SCH (10:29)
[2018-07-16] MEDS: Multivitamins/Minerals TAB PO SCH (10:29)
[2018-07-16 11:06] LABS: Hematocrit 39 % (42-52); Hemoglobin 13.2 g/dl (14.0-18.0); Mean Corpuscular HGB Conc 34 g/dl (31-36); Mean Corpuscular Hemoglobin 32 pg (27-31); Mean Corpuscular Volume 94 fL (80-94); Mean Platelet Volume 6.6 fL (7.4-10.4); Platelet Count 302 10^3/ul (150-450); Red Blood Count 4.15 10^6/ul (4.00-5.40); Red Cell Distribution Width 13 % (10.5-15); White Blood Count 6.8 10^3/ul (3.5-10.8)
[2018-07-16 11:36] LABS: BUN/Creatinine Ratio 13.6 (8-20); Calcium 9.3 mg/dL (8.6-10.3); HDL Cholesterol 45.6 mg/dL; Potassium 4.4 mmol/L (3.5-5.0)
--- NOTE | 2018-07-16 12:55 | PN ---
Subjective Date of Service: 07/16/18 Interval History: Pt states that he feels well. He denies chest pain overnight and today, stating that his last bout of chest pain was yesterday, which subsided with use of nitro in ER. He has completed his stress tests, and we are awaiting results to decide on d/c. He states that his low back and between his shoulder blades is still occasionally painful. He has had this pain in the past, and it first occurred after he spent a day moving. Denies CP, SOB, headache. Objective Active Medications: Acetaminophen (Tylenol Tab*) 650 mg PO Q4H PRN Ascorbic Acid (Vitamin C Tab*) 500 mg PO DAILY [facility] Aspirin (Aspirin Ec Tab*) 81 mg PO DAILY [facility] Cholecalciferol (Vitamin D Tab*) 2,000 units PO DAILY [facility] Enoxaparin Sodium (Lovenox(*)) 40 mg SUBCUT Q24H [facility] Folic Acid (Folvite Tab*) 1 mg PO DAILY [facility] Hydrochlorothiazide (Hydrodiuril Tab*) 25 mg PO DAILY [facility] Lisinopril (Prinivil Tab*) 20 mg PO DAILY [facility] Lorazepam (Ativan Tab(*)) 0 - 6 mg PO .PER [facility] PROTOCOL MIHAI; Protocol Multivitamins/Minerals (Theragran/Minerals Tab*) 1 tab PO DAILY [facility] Nicotine (Nicotine Inhaler*) 10 mg INH Q2H PRN Nicotine (Nicotine Patch 21 Mg/24 Hr*) 1 patch TRANSDERM DAILY [facility] Pharmacy Profile Note (Nicotine Patch Removal Note*) 1 note PATCH OFF 2100 [facility] Thiamine HCl (Vitamin B-1 Tab*) 100 mg PO DAILY [facility] Vital Signs: Temp Pulse Resp BP Pulse Ox 97.1 F 69 16 116/66 100 07/16/18 08:16 07/16/18 08:16 07/16/18 08:16 07/16/18 08:16 07/16/18 08:16 Oxygen Devices in Use Now: None Appearance: Pt is sitting upright, resting comfortable, in no acute distress. Eyes: No Scleral Icterus, PERRLA Ears/Nose/Mouth/Throat: NL Teeth, Lips, Gums, Mucous Membranes Moist Neck: NL Appearance and Movements; NL JVP, Trachea Midline Respiratory: Symmetrical Chest Expansion and Respiratory Effort, Clear to Auscultation Cardiovascular: NL Sounds; No Murmurs; No JVD, RRR, No Edema Abdominal: NL Sounds; No Tenderness; No Distention, - - no abdominal bruits; no palpable mass; Lower back slightly TTP lateral to lumbar spine on both sides Extremities: No Edema, No Clubbing, Cyanosis Skin: No Rash or Ulcers Neurological: Alert and Oriented x 3 Result Diagrams: 07/16/18 10:42 07/16/18 10:42 Assess/Plan/Problems-Billing Assessment: Pt is a 62yom with a PMHx of hypertension and tobacco abuse who presented to the ER with chest pain. - Patient Problems (1) Chest pain Comment: -EKG and telemetry monitoring show sinus rhythm; trop negative; trig and LDL mildly elevated -Stress test results: LVE EF 63%; Assessment: low risk based on cardiac poprtion (2) Back pain Comment: -The low back is tender to palpation, there is no pulsatile abdominal mass; this is likely musculoskeletal -Continue tylenol prn pain (3) Hypertension Comment: -Continue lisinopril, HCTZ (4) Alcohol use Comment: -Continue WAM protocol -Continue thiamine and folate (5) Tobacco abuse Comment: -Continue nicotine replacement (6) DVT prophylaxis Comment: -Continue lovenox (7) Full code status Status and Disposition: Inpatient. Discharge home once medically cleared.
[2018-07-16] MEDS: Enoxaparin(*) 40 MG/0.4 ML SYR SUBCUT SCH (13:11)
[2018-07-16 15:29] VITALS: BP 115/75
[2018-07-16] MEDS ORDERED: Nicotine Patch Removal NOTE PATCH OFF SCH (21:00)
--- NOTE | 2018-07-17 02:35 | DS ---
CC: Miriam Baeza NP * DISCHARGE SUMMARY: DATE OF ADMISSION: 07/15/18 DATE OF DISCHARGE: 07/16/18 PRIMARY CARE PROVIDER: Miriam Baeza NP ATTENDING PHYSICIAN: Dr. Mandi Fields * (dictated by VALENTE Cowan) PRIMARY DIAGNOSES: 1. Chest pain. 2. Low back pain. SECONDARY DIAGNOSES: 1. Hypertension. 2. Tobacco abuse. STUDIES WHILE IN THE HOSPITAL: Nuclear cardiac stress test on 07/16/18. Findings: Gated wall motion images were obtained at stress and demonstrate mild hypokinesia at the septum, calculated left ventricular ejection fraction is 63% and stress estimated left ventricular end diastolic volume is 79 mL, TID 0.92. Artifacts from cardiac activity noted at the inferior wall. Based on review of the attenuation corrected and non-corrected images, the distribution of radiopharmaceutical within the myocardium on the stress and rest images is within normal limits, no fixed or reversible regions of hypoperfusion evident. Assessment: Low risk based on cardiac portion. DISCHARGE MEDICATIONS: Home medications: 1. Cholecalciferol tab 2000 units p.o. daily. 2. Vitamin B complex cap 1 cap p.o. daily. 3. Milk Thistle seed extract 140 mg p.o. daily. 4. Lisinopril/hydrochlorothiazide 20/25 one tab p.o. daily. 5. Ascorbic acid tab 500 mg p.o. daily. New home medications: None. HISTORY OF PRESENT ILLNESS AND HOSPITAL COURSE: Mr. Miller is a 62-year-old male with a past medical history of hypertension, who presented to the ER on 09/01 with a complaint of chest pain and back pain. He was treated in June for back pain with naproxen which resolved the pain. When he went back to work on 07/08/18, the pain returned, since then he has felt unwell. Symptoms included dizziness, shortness of breath, decreased energy, fatigue, loss of appetite, and leg weakness. He was also having chest pain and dyspnea on exertion. The patient states that the chest pain resolved with a dose of nitroglycerin in the ER and has not returned since. Upon discharge, he remained asymptomatic. A lipid panel was performed while he was in the hospital with the results as below: Triglycerides 199, cholesterol 215, LDL cholesterol 130, HDL cholesterol 45.6. He was found to be hyponatremic which was likely due to IV fluids. The patient states that he continues to have low back pain which is tender to palpation and reproducible with palpation, but the chest pain has resolved. The back pain is similar to that which he had 1 month ago which his primary care physician is aware of and is currently assessing and treating. Mr. Miller is stable for discharge to home. PHYSICAL EXAM: General: Mr. Miller is a well developed, well nourished man who is sitting up in bed, in no acute distress. Vital Signs: Temperature 97.3 , heart rate 76, respiratory rate 16, oxygen saturation 98, and blood pressure 117/72. HEENT: Visual simpson grossly intact. Pupils equally round and reactive to light and accommodation. Extraocular movements intact. Sclerae without icterus. Hearing grossly intact. Oral mucous membranes moist. Neck: Full range of motion. Trachea midline. Tongue midline. Respiratory: Symmetrical chest expansion and respiratory effort. No accessory muscle use. Lungs: Clear to auscultation bilaterally. No rhonchi, wheeze, or rubs. Cardiovascular: Regular rate and rhythm. S1, S2 present. No murmurs, rubs, clicks, or gallops. No JVD. Abdomen: Bowel sounds in all quadrants. No tenderness, no distention, no abdominal bruits, no palpable mass. Musculoskeletal: Lower back: Slightly tender to palpation, bilateral to lumbar spine, tenderness to palpation between scapulae. Extremities: No edema, no clubbing, no cyanosis. Skin: No rashes or ulcers. Neurologic: Alert and oriented x3, moves all extremities. REVIEW OF SYSTEMS: Denies headache, chest pain, shortness of breath, cough, fever, nausea, vomiting, diarrhea, abdominal pain, diaphoresis, changes in bowel or bladder habit, positive for low back pain and pain between the scapulae. This is a summarized report of a complex medical history and hospital stay. For further details, please see the entire medical record. DISCHARGE PLAN: Mr. Miller will be discharged to home. ACTIVITY: As tolerated. DIET: Heart healthy. MEDICATIONS: As above. Education: Ibuprofen, hot/cold for low back pain, consider physical therapy. Follow up BMP for hyponatremia on Friday. Follow up with primary care physician to discuss recent inpatient stay, low back pain, results of lipid profile and recent echocardiogram. Follow up with Miriam Baeza in 4 to 7 days. The patient should return to the ER or nearest hospital if he experiences any worsening of symptoms, shortness of breath, lightheadedness, dizziness, chest discomfort or pain, high fevers, chills, night sweats, loss of consciousness, or any other worrisome signs or symptoms. TIME SPENT: Approximately 40 minutes was spent on this discharge, greater than half of that time spent [id number] with the patient discussing discharge plans and instructions. VALENTE HWANG [id number]/[facility] #: [id number] MTDShereen
== END 2018-07-16 17:26 | disposition home or self-care (01) ==
LOC: ED 10:28 → MEDTELE 13:20
PROVIDERS: ADMIT Hospitalist; ATTEND Hospitalist
DX: R07.9 Chest pain, unspecified (principal); M54.5 Low back pain; I10 Essential (primary) hypertension; F17.210 Nicotine dependence, cigarettes, uncomplicated
CPT/HCPCS: 36415; 71045; 78452; 80048; 80053; 80061; 81003; 83605; 83735; 83880; 84484; 85025; 85027; 85379; 85610; 85730; 93005; 93017; 96361; 96372; 99284; A9270-GY; A9502; G0378; J1650; J2785; J3411

== ENCOUNTER 2019-01-17 12:19 | Emergency (ER) | payer OTHER ==
--- NOTE | 2019-01-17 12:32 | ED ---
Abdominal Pain/Male - HPI Summary HPI Summary: This patient is a 63 year old male presenting to [facility] with a chief complaint of nausea since 4 days ago. He reports diarrhea, general weakness, abdominal cramping and denies vomiting. The patient denies chest pain and shortness of breath. He says he has general bilateral extremity pain. He rates his pain 8/10 in severity. - History of Current Complaint Chief Complaint: EDNauseaVomitDiarrh Stated Complaint: WEAKNESS/VOMITING PER PT Time Seen by Provider: 01/17/19 12:26 Hx Obtained From: Patient Onset/Duration: Lasting Days Timing: Lasting Days Severity Initially: Moderate Severity Currently: Moderate Pain Intensity: 8 Pain Scale Used: 0-10 Numeric Location: Diffuse - Allergies/Home Medications Allergies/Adverse Reactions: Allergies Allergy/AdvReac Type Severity Reaction Status Date / Time No Known Allergies Allergy Verified 01/17/19 12:24 PMH/Surg Hx/FS Hx/Imm Hx Endocrine/Hematology History: Denies: Hx Anticoagulant Therapy, Hx Diabetes Cardiovascular History: Reports: Hx Hypertension, Other Cardiovascular Problems/ Disorders - heart murmur Denies: Hx Angina, Hx Cardiac Arrest, Hx Coronary Artery Disease, Hx Hypercholesterolemia, Hx Myocardial Infarction, Hx Valvular Heart Disease Respiratory History: Reports: Hx Asthma Denies: Hx Chronic Obstructive Pulmonary Disease (COPD) GI History: Reports: Other GI Disorders - hernia s/p repair History: Denies: Hx Dialysis, Hx Renal Disease Sensory History: Reports: Hx Contacts or Glasses Denies: Hx Hearing Aid Opthamlomology History: Reports: Hx Contacts or Glasses Neurological History: Denies: Hx CVA - Surgical History Surgery Procedure, Year, and Place: CARPAL TUNNEL SURGERY, ELBOW SURGERY RT UPPER EXT, HERNIA REPAIR Infectious Disease History: No Infectious Disease History: Denies: Hx Clostridium Difficile, Hx Hepatitis, Hx Human Immunodeficiency Virus (HIV), Hx of Known/Suspected MRSA, Hx Shingles, Hx Tuberculosis, History Other Infectious Disease, Traveled Outside the [place] in Last 30 Days - Family History Known Family History: Negative: Cardiac Disease, Hypertension Family History: No FHx of [place]. - Social History Alcohol Use: Daily Alcohol Amount: beer "amount varies" Hx Substance Use: No Substance Use Type: Reports: None Hx Tobacco Use: Yes Smoking Status (MU): Current Every Day Smoker Type: Cigarettes Have You Smoked in the Last Year: Yes Review of Systems Negative: Chest Pain Negative: Shortness Of Breath Positive: Abdominal Pain, Diarrhea, Nausea. Negative: Vomiting Positive: Other - Bilateral lower extremity pain All Other Systems Reviewed And Are Negative: Yes Physical Exam - Summary Physical Exam Summary: VITAL SIGNS: Reviewed. GENERAL: Patient is a well-developed and nourished male who is lying comfortable in the stretcher. Patient is not in any acute respiratory distress. HEAD AND FACE: Normocephalic and atraumatic. EYES: PERRLA, EOMI x 2, No injected conjunctiva. EARS: Hearing grossly intact. Ear canals and tympanic membranes are WNL. MOUTH: Oropharynx within normal limits. NECK: Supple, trachea is midline, no adenopathy, no JVD. CHEST: Symmetric, no tenderness at palpation. LUNGS: Clear to auscultation bilaterally. No wheezing or crackles. CVS: RRR, S1 and S2 present, no murmurs or gallops appreciated. ABDOMEN: Soft, non-tender. No signs of distention. Hyperactive bowel sounds. No rebound, no guarding, and no masses palpated. No abdominal bruit or pulsations. EXTREMITIES: FROM in all major joints, no edema, no cyanosis or clubbing. NEURO: Alert and oriented x 3. No acute neurological deficits. Speech is normal. SKIN: Dry and warm. Triage Information Reviewed: Yes Vital Signs On Initial Exam: Initial Vitals Temp Pulse Resp BP Pulse Ox 98.1 F 94 16 118/71 99 01/17/19 12:22 01/17/19 12:22 01/17/19 12:22 01/17/19 12:22 01/17/19 12:22 Vital Signs Reviewed: Yes Diagnostics - Vital Signs Vital Signs Temp Pulse Resp BP Pulse Ox 01/17/19 12:22 98.1 F 94 16 118/71 99 - Laboratory Result Diagrams: 01/17/19 12:48 01/17/19 16:01 Lab Statement: Any lab studies that have been ordered have been reviewed, and results considered in the medical decision making process. Re-Evaluation - Re-Evaluation First Eval Re-Evaluation Time: 16:40 Comment: Discussed results and plan for discharge with patient. Abdominal Pain Male Course/Dx - Course Assessment/Plan: This patient is a 63 year old male presenting to [facility] with a chief complaint of nausea since 4 days ago. He reports diarrhea, general weakness, abdominal cramping and denies vomiting. The patient denies chest pain and shortness of breath. He says he has general bilateral extremity pain. He rates his pain 8/10 in severity. Blood work without any significant abnormality except for a slight decrease in hemoglobin and hematocrit, sodium is 125, chloride 90, glucose 115. Troponin is negative, urinalysis is negative. In the ED course the patient was given 2 L of IV fluids however, the sodium level is 125. I discussed the findings with Dr. Eagle and he requests for the patient to stop taking hydrochlorothiazide and lisinopril for 2 days and repeat the sodium level and his primary care physicians office. The patient is asymptomatic, he is alert and oriented 3 has no complaints. I discussed all the findings and test results with the patient. Patient was instructed to return to the emergency room immediately if any of the symptoms return worsens. Plan of care was discussed with the patient and understands and agrees. All questions were answered at patient satisfaction. There were no further complaints or concerns. Lung exam before discharge: CTA B/L. Good air exchange. No wheezing or crackles heard. CVS: S1 and S2 present. No murmurs appreciated. Patient is alert and oriented x 3. Patient is hemodynamically stable. Patient will be discharged home with follow up PCP in the next 2-3 days - Diagnoses Provider Diagnoses: Nausea, Hyponatremia - Provider Notifications Discussed Care Of Patient With: Arik Eagle Time Discussed With Above Provider: 16:37 Instructed by Provider To: Other - Stop new medication for 2-3 days and follow up with PCP. Discharge - Sign-Out/Discharge Documenting (check all that apply): Patient Departure - Discharge Patient Received Moderate/Deep Sedation with Procedure: No - Discharge Plan Condition: Stable Disposition: HOME Prescriptions: Ondansetron TAB* [Zofran 4 MG Tab*] 4 mg PO Q6H PRN #10 tab PRN Reason: Nausea Patient Education Materials: Hyponatremia (ED) Referrals: Pollo Richards [Primary Care Provider] - Additional Instructions: Follow up with your primary care provider within 2 days. Return to ED with new or worsening symptoms. - Billing Disposition and Condition Condition: STABLE Disposition: Home - Attestation Statements Document Initiated by Scribe: Yes Documenting Scribe: Elia Ramos Provider For Whom Maiibe is Documenting (Include Credential): Austen Garcia MD Scribe Attestation: I, Elia Ramos, scribed for Austen Garcia MD on 01/17/19 at 2201. Scribe Documentation Reviewed: Yes Provider Attestation: The documentation as recorded by the scribe, Elia Ramos accurately reflects the service I personally performed and the decisions made by me, Austen Garcia MD Status of Scribe Document: Viewed
[2019-01-17] MEDS ORDERED: Ondansetron INJ* 2 MG/ML VIAL IV ONE (12:38)
[2019-01-17] MEDS ORDERED: NS 0.9% 1000 ML** 1,000 ML IV ONE ×2 (12:39→14:35)
[2019-01-17 12:55] LABS: ABS Eosinophils 0.1 10^3/ul (0-0.6); ABS Lymphocytes 1.4 10^3/ul (1.0-4.8); ABS Monocytes 0.9 10^3/ul (0-0.8); ABS Neutrophils 4.7 10^3/ul (1.5-7.7); Eosinophil % 0.8 %; Hematocrit 39 % (42-52); Hemoglobin 13.7 g/dL (14.0-18.0); Lymphocyte % 19.9 %; Mean Corpuscular HGB Conc 35 g/dL (31-36); Mean Corpuscular Hemoglobin 32 pg (27-31); Mean Corpuscular Volume 92 fL (80-94); Mean Platelet Volume 6.6 fL (7.4-10.4); Platelet Count 299 10^3/uL (150-450); Red Blood Count 4.25 10^6 /uL (4.18-5.48); Red Cell Distribution Width 14 % (10-15); White Blood Count 7.1 10^3/uL (3.5-10.8)
[2019-01-17 13:27] LABS: ALT 23 U/L (7-52); AST 19 U/L (13-39); Albumin 4.5 g/dL (3.2-5.2); Albumin/Globulin Ratio 1.7 (1-3); Alkaline Phosphatase 53 U/L (34-104); Anion Gap 6 mmol/L (2-11); BUN/Creatinine Ratio 13.3 (8-20); Blood Urea Nitrogen 14 mg/dL (6-24); C Reactive Protein < 1.00 mg/L (<8.01); CO2 Carbon Dioxide 29 mmol/L (22-32); Calcium 9.7 mg/dL (8.6-10.3); Chloride 90 mmol/L (101-111); Creatine Kinase 88 U/L (10-223); EGFR African American 86.6 (>60); EGFR Non-African American 71.6 (>60); Globulin 2.6 g/dL (2-4); Glucose 115 mg/dL (70-100); Potassium 4.6 mmol/L (3.5-5.0); Sodium 125 mmol/L (135-145); Total Protein 7.1 g/dL (6.4-8.9)
[2019-01-17 15:04] LABS: Urine Appearance Clear; Urine Bilirubin Negative (Negative); Urine Blood Negative (Negative); Urine Color Yellow; Urine Glucose Negative (Negative); Urine Ketones Trace (Negative); Urine Nitrite Negative (Negative); Urine Protein Negative (Negative); Urine Specific Gravity 1.014 (1.010-1.030); Urine Urobilinogen Negative (Negative)
[2019-01-17 16:44] VITALS: BP 104/55
== END 2019-01-17 16:57 | disposition home or self-care (01) ==
LOC: ED 12:19
DX: R11.0 Nausea (principal); E87.1 Hypo-osmolality and hyponatremia; F17.210 Nicotine dependence, cigarettes, uncomplicated; I10 Essential (primary) hypertension
CPT/HCPCS: 36415; 80053; 81003; 82550; 83605; 83690; 84300; 85025; 86140; 96361; 96374; 99283; J2405

== ENCOUNTER 2019-06-18 11:20 | Emergency (ER) | payer OTHER ==
[2019-06-18 12:23] LABS: ABS Basophils 0.1 10^3/ul (0-0.2); ABS Eosinophils 0.2 10^3/ul (0-0.6); ABS Lymphocytes 1.8 10^3/ul (1.0-4.8); ABS Monocytes 0.9 10^3/ul (0-0.8); ABS Neutrophils 4.2 10^3/ul (1.5-7.7); Eosinophil % 2.1 %; Hematocrit 37 % (42-52); Hemoglobin 12.8 g/dL (14.0-18.0); Lymphocyte % 25.4 %; Mean Corpuscular HGB Conc 35 g/dL (31-36); Mean Corpuscular Hemoglobin 33 pg (27-31); Mean Corpuscular Volume 94 fL (80-94); Mean Platelet Volume 6.6 fL (7.4-10.4); Platelet Count 248 10^3/uL (150-450); Red Blood Count 3.94 10^6 /uL (4.18-5.48); Red Cell Distribution Width 14 % (10-15); White Blood Count 7.3 10^3/uL (3.5-10.8)
[2019-06-18 12:44] LABS: Albumin 4.4 g/dL (3.2-5.2); Albumin/Globulin Ratio 1.8 (1-3); BUN/Creatinine Ratio 16.7 (8-20); C Reactive Protein 1.08 mg/L (<8.01); Calcium 9.3 mg/dL (8.6-10.3); EGFR African American 89.5 (>60); Globulin 2.4 g/dL (2-4); Potassium 4.5 mmol/L (3.5-5.0); Total Bilirubin 0.5 mg/dL (0.2-1.0); Total Protein 6.8 g/dL (6.4-8.9)
[2019-06-18 12:47] LABS: Troponin I 0.01 ng/mL (<0.03)
--- NOTE | 2019-06-18 13:38 | ED ---
Complex/Multi-Sys Presentation - HPI Summary HPI Summary: Pt is a 63 y/o M presenting to the ED with a chief complaint of back pain. He states he has had back pain in the past that he is currently txing with 800mg IBU when he has flare-ups. He sees Dr. Alcala for this. He also reports that for about four days, hes had general bodyaches, chest pain described as tightness, diaphoresis, cough with mucous colored phlegm, sneezing, subjective fever, slight SOB, and chills. Pt denies any erythema of eyes, sore throat, abdominal pain, N/V, dysuria, hematuria, burning with urination, edema, rash, or dizziness. His sx worsen throughout the day, and are aggravated by deep breaths. - History Of Current Complaint Chief Complaint: EDUpperRespComplaint Time Seen by Provider: 06/18/19 13:24 Hx Obtained From: Patient Onset/Duration: Gradual Onset, Lasting Days, Still Present Timing: Constant, Days Severity Currently: Moderate Severity Initially: Moderate Location: Pain At: - back Associated Signs And Symptoms: Positive: SOB, Cough, Chest Pain, Back Pain, Fever - subjective, Diaphoresis. Negative: Dizziness, Edema, Nausea, Vomiting, Abdominal Pain, Dysuria - Allergies/Home Medications Allergies/Adverse Reactions: Allergies Allergy/AdvReac Type Severity Reaction Status Date / Time No Known Allergies Allergy Verified 01/17/19 12:24 Home Medications: Home Medications Calcium Carb, Citrate/Vit D3 [Calcium + D3 ER Tablet] 1 each PO BID 06/18/19 [ History Confirmed 06/18/19] Cyclobenzaprine TAB* [Flexeril 10 MG TAB*] 10 mg PO TID PRN 06/18/19 [History Confirmed 06/18/19] Folic Acid TAB* [Folvite TAB*] 1 mg PO DAILY 06/18/19 [History Confirmed ] Ibuprofen TAB* [Motrin TAB* 800 MG] 800 mg PO TID 06/18/19 [History Confirmed ] Omeprazole CAP (NF) [Prilosec CAP* 20 MG] 20 mg PO DAILY 06/18/19 [History Confirmed 06/18/19] Simvastatin TAB(NF) [Zocor(NF)] 20 mg PO DAILY 06/18/19 [History Confirmed 06/18] traZODone TAB* [Desyrel TAB*] 50 mg PO BEDTIME 06/18/19 [History Confirmed 06/18] PMH/Surg Hx/FS Hx/Imm Hx Previously Healthy: Yes Endocrine/Hematology History: Denies: Hx Anticoagulant Therapy, Hx Diabetes Cardiovascular History: Reports: Hx Hypertension, Other Cardiovascular Problems/ Disorders - heart murmur Denies: Hx Angina, Hx Cardiac Arrest, Hx Coronary Artery Disease, Hx Hypercholesterolemia, Hx Myocardial Infarction, Hx Valvular Heart Disease Respiratory History: Reports: Hx Asthma Denies: Hx Chronic Obstructive Pulmonary Disease (COPD) GI History: Reports: Other GI Disorders - hernia s/p repair History: Denies: Hx Dialysis, Hx Renal Disease Sensory History: Reports: Hx Contacts or Glasses Denies: Hx Hearing Aid Opthamlomology History: Reports: Hx Contacts or Glasses Neurological History: Denies: Hx CVA - Surgical History Surgery Procedure, Year, and Place: CARPAL TUNNEL SURGERY, ELBOW SURGERY RT UPPER EXT, HERNIA REPAIR Infectious Disease History: No Infectious Disease History: Denies: Hx Clostridium Difficile, Hx Hepatitis, Hx Human Immunodeficiency Virus (HIV), Hx of Known/Suspected MRSA, Hx Shingles, Hx Tuberculosis, History Other Infectious Disease, Traveled Outside the US in Last 30 Days - Family History Known Family History: Negative: Cardiac Disease, Hypertension Family History: No FHx of [place]. - Social History Alcohol Use: Daily Alcohol Amount: beer "amount varies" Hx Substance Use: No Substance Use Type: Reports: None Hx Tobacco Use: Yes Smoking Status (MU): Current Every Day Smoker Type: Cigarettes Have You Smoked in the Last Year: Yes Review of Systems Positive: Fever - subjective, Chills, Skin Diaphoresis Negative: Erythema Negative: Sore Throat Positive: Chest Pain Positive: Shortness Of Breath, Cough Negative: Abdominal Pain, Vomiting, Nausea Negative: burning, dysuria, hematuria Positive: Myalgia - back pain. Negative: Edema Negative: Rash Neurological: Other - dizziness All Other Systems Reviewed And Are Negative: Yes Physical Exam - Summary Physical Exam Summary: Constitutional: Well-developed, Well-nourished, Alert. (-) Distressed Skin: Warm, Dry HENT: Normocephalic; Atraumatic Eyes: Conjunctiva normal Neck: Musculoskeletal ROM normal neck. (-) JVD, (-) Stridor, (-) Tracheal deviation Cardio: Rhythm regular, rate normal, Heart sounds normal; Intact distal pulses; The pedal pulses are 2+ and symmetric. Radial pulses are 2+ and symmetric. (-) Murmur Pulmonary/Chest wall: Mild crackles in the R lower lobe. (-) Respiratory distress, (-) Wheezes, (-) Rales Abd: Soft, (-) tenderness, (-) Distension, (-) Guarding, (-) Rebound Musculoskeletal: (-) Edema Lymph: (-) Cervical adenopathy Neuro: Alert, Oriented x3 Psych: Mood and affect Normal Triage Information Reviewed: Yes Vital Signs On Initial Exam: Initial Vitals Temp Pulse Resp BP Pulse Ox 97.3 F 69 18 125/75 97 06/18/19 11:31 06/18/19 11:31 06/18/19 11:31 06/18/19 11:31 06/18/19 11:31 Vital Signs Reviewed: Yes Procedures - Sedation Patient Received Moderate/Deep Sedation with Procedure: No Diagnostics - Vital Signs Vital Signs Temp Pulse Resp BP Pulse Ox 06/18/19 13:09 97.4 F 68 16 130/69 96 06/18/19 11:31 97.3 F 69 18 125/75 97 - Laboratory Lab Results: Lab Results 06/18/19 06/18/19 06/18/19 Range/Units 12:15 12:15 12:15 WBC 7.3 (3.5-10.8) 10^3/uL RBC 3.94 L (4.18-5.48) 10^6 /uL Hgb 12.8 L (14.0-18.0) g/dL Hct 37 L (42-52) % MCV 94 (80-94) fL MCH 33 H (27-31) pg MCHC 35 (31-36) g/dL RDW 14 (10-15) % Plt Count 248 (150-450) 10^3/uL MPV 6.6 L (7.4-10.4) fL Neut % (Auto) 58.3 % Lymph % (Auto) 25.4 % [place] % (Auto) 13.0 % Eos % (Auto) 2.1 % Baso % (Auto) 1.2 % Absolute Neuts (auto) 4.2 (1.5-7.7) 10^3/ul Absolute Lymphs (auto) 1.8 (1.0-4.8) 10^3/ul Absolute Monos (auto) 0.9 H (0-0.8) 10^3/ul Absolute Eos (auto) 0.2 (0-0.6) 10^3/ul Absolute Basos (auto) 0.1 (0-0.2) 10^3/ul Absolute Nucleated RBC 0.0 10^3/ul Nucleated RBC % 0.0 Sodium 133 L (135-145) mmol/L Potassium 4.5 (3.5-5.0) mmol/L Chloride 99 L (101-111) mmol/L Carbon Dioxide 28 (22-32) mmol/L Anion Gap 6 (2-11) mmol/L BUN 17 (6-24) mg/dL Creatinine 1.02 (0.67-1.17) mg/dL Est GFR ( Amer) 89.5 (>60) Est GFR (Non-Af Amer) 74.0 (>60) BUN/Creatinine Ratio 16.7 (8-20) Glucose 89 (70-100) mg/dL Lactic Acid 1.2 (0.5-2.0) mmol/L Calcium 9.3 (8.6-10.3) mg/dL Total Bilirubin 0.50 (0.2-1.0) mg/dL AST 21 (13-39) U/L ALT 23 (7-52) U/L Alkaline Phosphatase 53 (34-104) U/L Troponin I 0.01 (<0.03) ng/mL C-Reactive Protein 1.08 (<8.01) mg/L Total Protein 6.8 (6.4-8.9) g/dL Albumin 4.4 (3.2-5.2) g/dL Globulin 2.4 (2-4) g/dL Albumin/Globulin Ratio 1.8 (1-3) Lipase 44 (11.0-82.0) U/L Result Diagrams: 06/18/19 12:15 06/18/19 12:15 Lab Statement: Any lab studies that have been ordered have been reviewed, and results considered in the medical decision making process. - Radiology CXR Radiology Interpretation Completed By: Radiologist Summary of Radiographic Findings: No active cardiopulmonary disease. ED physician has reviewed this report. - CT CT chest CT Interpretation Completed By: Radiologist Summary of CT Findings: 1. No acute thoracic pathologic process evident. 2. Negative for aneurysm or dissection of the thoracic aorta. ED physician has reviewed this report. 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 The arterial dissection at the LEFT common iliac artery is new. Negative for retroperitoneal hematoma/evidence for aneurysm leak. ED physician has reviewed this report. Re-Evaluation - Re-Evaluation 1st re-eval Re-Evaluation Time: 18:13 Change: Unchanged Comment: Discussed results with family & pt. Pt has aortic dissection. He will be transferred to [facility], and is agreeable. Pain is currently 6/10 in the back. He has developed diarrhea. Complex Multi-Symp Course/Dx Course Of Treatment: Pt is a 63 y/o M presenting to the ED with a chief complaint of back pain. He also reports that for about four days, hes had general bodyaches, chest pain described as tightness, diaphoresis, cough with mucous colored phlegm, sneezing, subjective fever, slight SOB, and chills. Pt denies any erythema of eyes, sore throat, abdominal pain, N/V, dysuria, hematuria, burning with urination, edema, rash, or dizziness. His sx worsen throughout the day, and are aggravated by deep breaths. On exam, pt has mild crackles in the R lower lobe. CXR shows: No active cardiopulmonary disease. Influenza A&B tests are negative. CT chest shows: 1. No acute thoracic pathologic process evident. 2. Negative for aneurysm or dissection of the thoracic aorta. 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 The arterial dissection at the LEFT common iliac artery is new. Negative for retroperitoneal hematoma/evidence for aneurysm leak. 1812 - Discussed results with family & pt. Pt has aortic dissection. He will be transferred to [facility], and is agreeable. Pain is currently 6/10 in the back. He has developed diarrhea. Dx is aortic dissection. G[facility]RIELL[facility] Pickens accepts the pt. He will be going ED to ED. Dr. White of vascular surgery accepts. Dr. Do will be ER doc. - Diagnoses Provider Diagnoses: Aortic dissection - Critical Care Time Critical Care Time: 30-74 min - 60min Discharge ED - Sign-Out/Discharge Documenting (check all that apply): Patient Departure - Discharge Plan Condition: Stable Disposition: TRANS HIGHER LVL OF CARE FAC Referrals: Session Pollo ONEAL [Primary Care Provider] - - Attestation Statements Document Initiated by Scribe: Yes Documenting Scribe: Alyssa De La Cruz Provider For Whom Scribe is Documenting (Include Credential): Jonny Jolly MD. Scribe Attestation: Alyssa Ram, scribed for Jonny Jolyl MD. on 06/18/19 at 1917. Status of Scribe Document: Ready
[2019-06-18] MEDS ORDERED: Iohexol 350* (CONTRAST) 500 ML MDV IV ONE (13:52)
[2019-06-18 14:37] LABS: Influenza A Molecular NEGATIVE (Negative); Influenza B Molecular NEGATIVE (Negative)
[2019-06-18 16:28] LABS: Urine Appearance Clear; Urine Bilirubin Negative (Negative); Urine Blood Negative (Negative); Urine Color Yellow; Urine Glucose Negative (Negative); Urine Ketones Negative (Negative); Urine Nitrite Negative (Negative); Urine Protein Negative (Negative); Urine Urobilinogen Negative (Negative)
[2019-06-18] MEDS ORDERED: Morphine 4 MG/ML VIAL (1 ml) 4 MG/ML VIAL IV ONE (18:16)
[2019-06-18] MEDS ORDERED: Ondansetron INJ* 2 MG/ML VIAL IV ONE (18:16)
[2019-06-18 19:32] VITALS: BP 140/87
== END 2019-06-18 19:37 | disposition short-term general hospital (02) ==
LOC: ED 11:20
DX: I71.00 Dissection of unspecified site of aorta (principal); I10 Essential (primary) hypertension; J45.909 Unspecified asthma, uncomplicated; F17.210 Nicotine dependence, cigarettes, uncomplicated; Z79.899 Other long term (current) drug therapy
CPT/HCPCS: 36415; 71045; 71275; 74174; 80053; 81003; 83605; 83690; 84484; 85025; 86140; 96374; 96375; 99285; J2270; J2405; Q9967

== ENCOUNTER 2019-06-22 15:40 | Emergency (ER) | payer OTHER ==
--- OUTSIDE RECORDS SUMMARY | 2019-06-22 16:19 | XMS REPORT | Summary of Care ---
:1955 Author Organization [facility] Address [address] [place] [address] Care Team Providers Name Role Phone Session, Pollo VICTOR Primary Care Provider Reason for Visit Reason Comments ED To ED Transfer Encounter Details Date Type Department Care Team Description 06/18/2019 - Emergency EMERGENCY DEPARTMENT Angeline Do MD [address] [place] [address] [phone] Iliac dissection (Primary Dx); 06/19/2019 Susie Anaya MD [address] [place] [address] [phone] Iliac aneurysm [address] [place] [address] Allergies No Known Allergiesdocumented as of this encounter (statuses as of 06/19/2019) Medications Medication Sig Dispensed Refills Start Date End Date Status Vitamin C 500 MG Oral Take 500 mg by 0 Active Tablet (ASCORBIC ACID) mouth daily Lisinopril-hydroCHLOROt Take 1 tablet 0 Active hiazide 20-25 MG Oral by mouth daily Tablet (PRINZIDE,ZESTORETIC) Vitamin B-12 100 MCG Take 50 mcg by 0 Active Oral Tablet mouth daily (CYANOCOBALAMIN) Calcium Carbonate 600 Take 600 mg by 0 Active MG Oral Tablet (OS-ROMMEL) mouth Two times daily with meals Cyclobenzaprine HCl 10 Take 10 mg by 0 Active MG Oral Tablet mouth Three (FLEXERIL) times daily as needed for Muscle spasms Folic Acid 1 MG Oral Take 1 mg by 0 Active Tablet (FOLVITE) mouth daily Ibuprofen 800 MG Oral Take 800 mg by 0 Active Tablet (ADVIL,MOTRIN) mouth every 6 (six) hours as needed for Pain Omeprazole 20 MG Oral Take 20 mg by 0 Active Capsule Delayed Release mouth daily (PriLOSEC) Simvastatin 20 MG Oral Take 20 mg by 0 Active Tablet (ZOCOR) mouth nightly TraZODone & Diet Manage Take by mouth 0 Active Prod (TRAZAMINE PO) HYDROcodone-Acetaminoph Take 1 tablet 12 tablet 0 06/19/2019 06/22/2019 Active en 5-325 MG Oral Tablet by mouth every (LORTAB) 6 (six) hours as needed for Pain for up to 3 days, Max Daily Dose: 4 tablets documented as of this encounter (statuses as of 06/19/2019) Active Problems Not on filedocumented as of this encounter (statuses as of 06/19/2019) Social History Tobacco Use Types Packs/Day Years Used Date Never Assessed 0 Tobacco Cessation: Counseling Given: Yes Alcohol Use Drinks/Week oz/Week Comments Yes Sex Assigned at Date Recorded Not on file Job Start Date Occupation Industry Not on file Not on file Not on file Travel History Travel Start Travel End No recent travel history available. documented as of this encounter Last Filed Vital Signs Vital Sign Reading Time Taken Comments Blood Pressure 110/62 06/19/2019 4:00 AM EST Pulse 61 06/19/2019 4:00 AM EST Temperature 36.6 06/19/2019 12:52 AM EST C (97.9 F) Respiratory Rate 15 06/19/2019 4:00 AM EST Oxygen Saturation 94% 06/19/2019 4:00 AM EST Inhaled Oxygen Concentration - - Weight 79.4 kg (175 lb) 06/18/2019 9:34 PM EST Height 177.8 cm (5' 10") 06/18/2019 9:34 PM EST Body Mass Index 25.11 06/18/2019 9:34 PM EST documented in this encounter Discharge Instructions AttachmentsThe following attachments cannot be sent through Care Everywhere.Stroke and Heart Disease (Ukrainian)documented in this encounter Plan of Treatment Name Type Priority Associated Diagnoses Date/Time EKG 12 lead ECG STAT 06/19/2019 4:34 AM EST documented as of this encounter Procedures Procedure Name Priority Date/Time Associated Diagnosis Comments EKG 12-LEAD - CMAXX 06/19/2019 4:34 AM REPORT EST POCT ISTAT TROPONIN Routine 06/19/2019 4:31 AM Results for this EST procedure are in the results section. documented in this encounter Results EKG 12-LEAD - CMAXX REPORT (06/19/2019 4:34 AM EST) Narrative Performed At POCT i-STAT Troponin (06/19/2019 4:31 AM EST) i-STAT Troponin I 0.00 0.00 - 0.08 ng/mL [facility] POC Specimen Whole Blood Performing Organization Address City/State/Zipcode Phone Number POINT OF CARE TEST [address] POC [address] [place] [address] documented in this encounter Visit Diagnoses Diagnosis Iliac dissection - Primary Dissection of iliac artery Iliac aneurysm Aneurysm of iliac artery documented in this encounter Administered Medications Medication Order MAR Action Action Date Dose Rate Site HYDROcodone-acetaminophen Given 06/19/2019 1:45 AM EST 2 tablets (LORTAB) 5-325 MG per tablet 2 tablet 2 tablet, Oral, Once, 06/19/19 at 0145, For 1 dose, Maximum daily dose of acetaminophen is 3,000 mg from all sources in 24 hours., documented in this encounter
--- NOTE | 2019-06-22 17:34 | ED ---
Back Pain - HPI Summary HPI Summary: The patient is a 63 y/o M presenting to [facility] with a chief complaint of worsening back pain for the last four days. He reports that he has a history of a left iliac artery aneurysm and dissection that had not been treated a year ago , and he has been experiencing worsening back pain, so he came into the ED four days ago. It was found that the dissection had gotten larger, so he was transferred to [place], where he states they just "administered pain medications and discharged him home". He went to his PCP yesterday and was told that the dissection could be leaking and causing his pain. His pain is now worse in back, so he has come back to the ED seeking vascular surgery consultation. Patient also states mild left-sided neck cramping that began earlier today at rest. Currently, his back pain is rated 8/10 in severity. He denies CP. PMHx: HTN, heart murmur. Heavy every day smoker, daily EtOH, no substance use. Medications reviewed. Allergies noted. - History of Current Complaint Chief Complaint: EDBackInjuryPain Stated Complaint: HEADACHE PER PT Time Seen by Provider: 06/22/19 17:20 Hx Obtained From: Patient Onset/Duration: Gradual Onset, Lasting Days - four, Still Present Onset/Duration: Started Days Ago, Still Present Timing: Lasting Days Back Pain Location: Is Discrete @ - back, Radiates To - neck, left leg Severity Initially: Moderate Severity Currently: Severe Pain Intensity: 8 Pain Scale Used: 0-10 Numeric Character: Aching Aggravating Symptom(s): Nothing Alleviating Symptom(s): Nothing - Allergies/Home Medications Allergies/Adverse Reactions: Allergies Allergy/AdvReac Type Severity Reaction Status Date / Time No Known Allergies Allergy Verified 06/22/19 16:09 PMH/Surg Hx/FS Hx/Imm Hx Endocrine/Hematology History: Denies: Hx Anticoagulant Therapy, Hx Diabetes Cardiovascular History: Reports: Hx Hypertension, Other Cardiovascular Problems/ Disorders - heart murmur Denies: Hx Angina, Hx Cardiac Arrest, Hx Coronary Artery Disease, Hx Hypercholesterolemia, Hx Myocardial Infarction, Hx Valvular Heart Disease Respiratory History: Reports: Hx Asthma Denies: Hx Chronic Obstructive Pulmonary Disease (COPD) GI History: Reports: Other GI Disorders - hernia s/p repair History: Denies: Hx Dialysis, Hx Renal Disease Sensory History: Reports: Hx Contacts or Glasses Denies: Hx Hearing Aid Opthamlomology History: Reports: Hx Contacts or Glasses Neurological History: Denies: Hx CVA - Surgical History Surgical History: Yes Surgery Procedure, Year, and Place: CARPAL TUNNEL SURGERY, ELBOW SURGERY RT UPPER EXT, HERNIA REPAIR Infectious Disease History: No Infectious Disease History: Denies: Hx Clostridium Difficile, Hx Hepatitis, Hx Human Immunodeficiency Virus (HIV), Hx of Known/Suspected MRSA, Hx Shingles, Hx Tuberculosis, History Other Infectious Disease, Traveled Outside the [place] in Last 30 Days - Family History Known Family History: Negative: Cardiac Disease, Hypertension Family History: No FHx of [place]. - Social History Alcohol Use: Daily Alcohol Amount: beer "amount varies" Hx Substance Use: No Substance Use Type: Reports: None Hx Tobacco Use: Yes Smoking Status (MU): Heavy Every Day Tobacco Smoker Type: Cigarettes Have You Smoked in the Last Year: Yes Review of Systems Negative: Chest Pain Positive: Other - back pain radiating into left leg and neck All Other Systems Reviewed And Are Negative: Yes Physical Exam - Summary Physical Exam Summary: Constitutional: Well-developed, Well-nourished, Alert. (-) Distressed Skin: Warm, Dry HENT: Normocephalic; Atraumatic Eyes: Conjunctiva normal Neck: Musculoskeletal ROM normal neck. Mild TTP L paraspinal C spine (-) JVD, (- ) Stridor, (-) Nuchal rigidity Cardio: Rhythm regular, rate normal, Heart sounds normal; Intact distal pulses; Radial pulses are 2+ and symmetric. Pedal pulse 2+ symmetric (-) Murmur Pulmonary/Chest wall: Effort normal. (-) Respiratory distress, (-) Wheezes, (-) Rales Abd: Soft, (-) tenderness, (-) Distension, (-) Guarding, (-) Rebound Musculoskeletal: (-) Edema Lymph: (-) Cervical adenopathy Neuro: Alert, Oriented x3, strength 5/5 BLE. SILT. Ambulates w steady gait Psych: Mood and affect Normal Triage Information Reviewed: Yes Vital Signs On Initial Exam: Initial Vitals Temp Pulse Resp BP Pulse Ox 97.9 F 71 16 143/69 98 06/22/19 16:04 06/22/19 16:04 06/22/19 16:04 06/22/19 16:04 06/22/19 16:04 Vital Signs Reviewed: Yes Procedures - Sedation Patient Received Moderate/Deep Sedation with Procedure: No Diagnostics - Vital Signs Vital Signs Temp Pulse Resp BP Pulse Ox 06/22/19 16:04 97.9 F 71 16 143/69 98 - Laboratory Result Diagrams: 06/22/19 18:02 06/22/19 17:59 Lab Statement: Any lab studies that have been ordered have been reviewed, and results considered in the medical decision making process. - Radiology CXR Radiology Interpretation Completed By: Radiologist Summary of Radiographic Findings: No acute abnormality. No change from prior. ED physician has reviewed and interpreted this imaging report. Pending official read. - EKG 1749 Cardiac Rate: Bradycardia - 56 BPM EKG Rhythm: Sinus Bradycardia Summary of EKG Findings: An EKG at 1749 reveals sinus bradycardia at 56 BPM, nml axis, nml intervals. No STEMI. No acute changes. ED physician has reviewed and interpreted this EKG. Re-Evaluation - Re-Evaluation First Eval Re-Evaluation Time: 19:00 Comment: He is experiencing more left-sided CP and jaw pain. Pt had suboptimal nuclear stress test in July 2018 which did not show any signifiacnt abnormalities. He also had carotid doppler studies in September 2018 which did not show significant stenosis. Second Eval Re-Evaluation Time: 20:10 Comment: We discussed consultation with Dr. Sow. He will follow up with him in the office, and we will provide hard copies of imaging. Back Pain Course/Dx - Course Course Of Treatment: 63 y/o male w hx HTN and left iliac artery aneurysm presenting with back pain. - Patient denies new back pain since that this is his chronic back pain that he is concerned as his primary care doctor said it could be secondary to his aneurysm. - regarding back pain with aneurysm, discussed with on-call vascular surgery at [facility] who states is unlikely the source of his pain given the small size of this aneurysm and that they would offer elective repair. Advise patient of their recommendations to which she said he would follow-up with vascular surgery. Patient was given a CD of his CTA to admit him to [facility]. - Regarding left-sided neck cramping, patient denies chest pain, EKG unchanged, troponin negative. Chest x-ray without abnormalities. Do not suspect that this is secondary to his aneurysm/ dissection. - had neg stress test in Jul and carotid dopplers in September - Diagnoses Provider Diagnoses: Back pain - Provider Notifications Discussed Care Of Patient With: Piter Sow MD - vascular surgery Time Discussed With Above Provider: 20:00 Instructed by Provider To: Other - I consulted CHARLETTE Pearce at [facility] concerning the patient's visit a few days ago, and they report that the patient saw vascular surgery at that time who recommended outpatient workup. I spoke with vascular surgery at [facility], and we discussed the patient's case. Dr. Sow doesn't think that his back pain is due to the dissection. His case is not emergent at this time, as they usually do not operate until 3-4cm. He is happy to follow up with the patient in his office. Discharge ED - Sign-Out/Discharge Documenting (check all that apply): Patient Departure - Patient will be discharged home. - Discharge Plan Condition: Stable Disposition: HOME Patient Education Materials: Back Pain (ED) Referrals: Juanjose WILLS,Piter Noguera [Medical Doctor] - 3 Days Session Pollo ONEAL [Primary Care Provider] - 3 Days Additional Instructions: Dr. Sow's office number: You were seen in the emergency department for back pain. Your labs did not show any new abnormalities. We spoke with the vascular surgeons at [facility] who recommended outpatient follow-up. If any studies were not completed at the time of discharge you will be called with the relevant results. Please follow up with your primary care doctor in the next 2-3 days and return to the emergency department for worsening in, chest pain, back pain, or concerning symptoms. It was a pleasure taking care of you today. - Billing Disposition and Condition Condition: STABLE Disposition: Home - Attestation Statements Document Initiated by Malu: Yes Documenting Scribe: Val Ronquillo Provider For Whom Malu is Documenting (Include Credential): MD Mai Gamaibe Attestation: Val Ram scribed for Dr. Wesley Scott MD on 06/22/19 at 2204. Scribe Documentation Reviewed: Yes Provider Attestation: The documentation as recorded by the Val watkins accurately reflects the service I personally performed and the decisions made by me, Dr. Wesley Scott MD Status of Scribe Document: Viewed
[2019-06-22 18:08] LABS: ABS Basophils 0.1 10^3/ul (0-0.2); ABS Eosinophils 0.3 10^3/ul (0-0.6); ABS Monocytes 0.7 10^3/ul (0-0.8); ABS Neutrophils 3.9 10^3/ul (1.5-7.7); Eosinophil % 3.8 %; Hematocrit 37 % (42-52); Hemoglobin 13.1 g/dL (14.0-18.0); Lymphocyte % 28.2 %; Mean Corpuscular HGB Conc 35 g/dL (31-36); Mean Corpuscular Hemoglobin 33 pg (27-31); Mean Corpuscular Volume 93 fL (80-94); Platelet Count 256 10^3/uL (150-450); Red Blood Count 4.02 10^6 /uL (4.18-5.48); Red Cell Distribution Width 13 % (10-15)
[2019-06-22 18:38] LABS: Albumin 4.4 g/dL (3.2-5.2); Albumin/Globulin Ratio 1.6 (1-3); BUN/Creatinine Ratio 14.1 (8-20); Calcium 9.3 mg/dL (8.6-10.3); EGFR Non-African American 100.9 (>60); Globulin 2.8 g/dL (2-4); Potassium 4.2 mmol/L (3.5-5.0); Total Bilirubin 0.4 mg/dL (0.2-1.0); Total Protein 7.2 g/dL (6.4-8.9)
[2019-06-22 20:23] VITALS: BP 128/73
== END 2019-06-22 20:22 | disposition home or self-care (01) ==
LOC: ED 15:40
DX: M54.9 Dorsalgia, unspecified (principal); I10 Essential (primary) hypertension; F17.210 Nicotine dependence, cigarettes, uncomplicated
CPT/HCPCS: 36415; 71046; 80053; 84484; 85025; 93005; 99282

== ENCOUNTER → 2019-08-05 10:48 | Day surgery (SDC) | payer OTHER ==
[~2019-08-05 10:48] MED LIST: Aspirin 81 mg CHEW TAB* 81 MG TAB.CHEW ONE; Clopidogrel TAB* 300 MG ONE; Heparin 2 UNITS/ML IVPREMIX* 3,000 ML IV ONE; Heparin(*) 1000 UNIT/ML 10 ML VIAL CATH LAB IV ONE; Iohexol 350 (CONTRAST) 200 ML MDV IV ONE; LORazepam TAB(*) 1 MG ONE; Lidocaine 1% INJ* 10 MG/ML 30 ML SDV ONE; Metoprolol Tartrate IV* 1 MG/ML 5 ML VIAL ONE; Midazolam* 1 MG/ML 5 ML VIAL (5 MG) ONE; ceFAZolin 1 GM in Dextrose (*) 1 GM/50 ML BAG IVPB ONE; fentaNYL* 50 MCG/ML 2 ML VIAL (100 MCG VIAL) ONE; hydrALAZINE IV* 20 MG/ML VIAL ONE
[2019-08-05 12:03] LABS: ABS Basophils 0.1 10^3/ul (0-0.2); ABS Eosinophils 0.1 10^3/ul (0-0.6); ABS Lymphocytes 1.3 10^3/ul (1.0-4.8); ABS Monocytes 0.6 10^3/ul (0-0.8); Eosinophil % 1.3 %; Hematocrit 41 % (42-52); Lymphocyte % 18.8 %; Mean Corpuscular HGB Conc 34 g/dL (31-36); Mean Corpuscular Hemoglobin 32 pg (27-31); Mean Corpuscular Volume 94 fL (80-94); Platelet Count 300 10^3/uL (150-450); Red Blood Count 4.38 10^6 /uL (4.18-5.48); Red Cell Distribution Width 14 % (10-15); White Blood Count 7.2 10^3/uL (3.5-10.8)
[2019-08-05 12:17] LABS: INR 0.98 (0.82-1.09)
[2019-08-05 12:20] LABS: BUN/Creatinine Ratio 15.5 (8-20); Calcium 9.4 mg/dL (8.6-10.3); EGFR Non-African American 92.6 (>60); Potassium 3.7 mmol/L (3.5-5.0)
[2019-08-05 16:13] VITALS: BP 133/84
--- NOTE | 2019-08-05 16:53 | PN ---
Progress Note - Progress Note Date of Service: 08/05/19 SOAP: Subjective: No pain complaints in the pelvis or elsewhere. No CP. No SOB. Objective: Selected Entries 08/05/19 16:08 Heart Rate 69 Respiratory 22 Rate Blood Pressure 133/84 (mmHg) Blood Pressure 90 Mean O2 Sat by Pulse 95 Oximetry NAD, AAO x 3 Abdomen and pelvis are soft, nontender. No rebound or guarding. Left groin is soft, nontender 2+ pulse palpated at left [employer] Assessment: 63 YOM with focal left common iliac artery dissecting aneurysm status post angiography and Villalba VBX stent graft placement across the dissection. Left common femoral arteriotomy successfully sealed with AngioSeal percutaneous closure device. Plan: 1. D/C to home. 2. Plavix 75 mg po daily x 30 days. 3. ASA 81 mg po daily for life. 4. Follow up will include [facility] and Interventional Radiology clinic visit late August 2019.
== END | disposition home or self-care (01) ==
LOC: CHICATH 10:48
PROVIDERS: ATTEND Radiology Diagnostic Radiology
DX: I77.72 Dissection of iliac artery (principal); I72.3 Aneurysm of iliac artery; I10 Essential (primary) hypertension; R73.03 Prediabetes; F17.210 Nicotine dependence, cigarettes, uncomplicated; R53.83 Other fatigue; I70.209 Unspecified atherosclerosis of native arteries of extremities, unspecified extremity; M54.6 Pain in thoracic spine; M54.2 Cervicalgia; R11.11 Vomiting without nausea
CPT/HCPCS: 36415; 37252; 75736; 76937; 80048; 85025; 85610; 99156; 99157; A9270-GY; C1753; C1760; C1769; C1874; C1887; C1894; J0360; J0690; J1644; J2250; J3010; J3490

== ENCOUNTER 2022-02-27 06:33 | Observation (INO) ==
[2022-02-27 06:57] LABS: ABS Lymphocytes 1.2 10^3/ul (1.0-4.8); ABS Monocytes 1.2 10^3/ul (0-0.8); ABS Neutrophils 8.2 10^3/ul (1.5-7.7); Eosinophil % 0.4 %; Hematocrit 42 % (42-52); Hemoglobin 14.3 g/dL (14.0-18.0); Mean Corpuscular HGB Conc 35 g/dL (31-36); Mean Corpuscular Hemoglobin 32 pg (27-31); Mean Corpuscular Volume 93 fL (80-94); Mean Platelet Volume 7.1 fL (7.4-10.4); Platelet Count 302 10^3/uL (150-450); Red Blood Count 4.47 10^6 /uL (4.18-5.48); Red Cell Distribution Width 14 % (10-15); White Blood Count 10.6 10^3/uL (3.5-10.8)
[2022-02-27 07:08] LABS: INR 1.01 (0.89-1.11)
[2022-02-27] MEDS ORDERED: Lactated Ringers 1000 ml BAG 1,000 ML IV ONE ×3 (07:31→11:40)
[2022-02-27 07:32] LABS: Albumin 4.5 g/dL (3.2-5.2); Albumin/Globulin Ratio 1.7 (1-3); Calcium 9.7 mg/dL (8.6-10.3); Globulin 2.7 g/dL (2-4); Potassium 4.3 mmol/L (3.5-5.0); Total Bilirubin 1.4 mg/dL (0.2-1.0); Total Protein 7.2 g/dL (6.4-8.9); eGFR CKD-EPI 56.7 (>60)
[2022-02-27] MEDS ORDERED: Iodixanol (CONTRAST) 320 MG/ML 100 ML SDV IV ONE ×2 (07:45→08:44)
[2022-02-27 08:29] LABS: High Sensitivity Troponin 1 Hr 15 pg/mL (<20)
[2022-02-27 08:47] LABS: Magnesium 1.9 mg/dL (1.9-2.7)
[2022-02-27] MEDS ORDERED: Ondansetron 4 mg VIAL 2 MG/ML 2 ml VIAL IV PRN (09:33)
[2022-02-27] MEDS ORDERED: Morphine 2 MG/ML SYRINGE IV ONE (11:36)
[2022-02-27 12:07] LABS: Urine Color Yellow
[2022-02-27 12:08] LABS: Urine Appearance Clear; Urine Bilirubin Negative (Negative); Urine Blood Negative (Negative); Urine Glucose Negative (Negative); Urine Ketones 1+ (15mg/dL) (Negative); Urine Nitrite Negative (Negative); Urine Protein Negative (Negative); Urine Urobilinogen 0.2 (Negative) (Negative)
[2022-02-27] MEDS: Enoxaparin 40 MG/0.4 ML SYR SUBCUT SCH (12:33)
[2022-02-28 05:54] LABS: ABS Basophils 0.1 10^3/ul (0-0.2); ABS Eosinophils 0.1 10^3/ul (0-0.6); ABS Lymphocytes 1.2 10^3/ul (1.0-4.8); ABS Neutrophils 3.1 10^3/ul (1.5-7.7); Eosinophil % 1.5 %; Hematocrit 36 % (42-52); Hemoglobin 12.4 g/dL (14.0-18.0); Lymphocyte % 21.4 %; Mean Corpuscular HGB Conc 34 g/dL (31-36); Mean Corpuscular Hemoglobin 32 pg (27-31); Mean Corpuscular Volume 94 fL (80-94); Mean Platelet Volume 7.3 fL (7.4-10.4); Platelet Count 251 10^3/uL (150-450); Red Blood Count 3.86 10^6 /uL (4.18-5.48); Red Cell Distribution Width 14 % (10-15); White Blood Count 5.4 10^3/uL (3.5-10.8)
[2022-02-28 06:14] LABS: Albumin 3.7 g/dL (3.2-5.2); Albumin/Globulin Ratio 1.7 (1-3); Calcium 9.1 mg/dL (8.6-10.3); Globulin 2.2 g/dL (2-4); HDL Cholesterol 72.9 mg/dL; Potassium 4.7 mmol/L (3.5-5.0); Total Bilirubin 1.1 mg/dL (0.2-1.0); Total Protein 5.9 g/dL (6.4-8.9); eGFR CKD-EPI 92.3 (>60)
[2022-02-28] MEDS ORDERED: Aspirin EC 81 mg TAB.EC (enteric coated) PO SCH (09:00)
[2022-02-28] MEDS: Enoxaparin 40 MG/0.4 ML SYR SUBCUT SCH (10:13)
[2022-02-28] MEDS ORDERED: Regadenoson 0.4 MG/5 ML SYRINGE ONE (12:57)
[2022-02-28 14:25] VITALS: BP 108/54
== END 2022-02-28 17:25 | disposition home or self-care (01) ==
LOC: EDHOLD 06:33 → ED 06:33 → MEDTELE 13:03
PROVIDERS: ADMIT Internal Medicine; ATTEND Internal Medicine

== ENCOUNTER 2023-02-12 09:17 | Inpatient (IN) ==
[~2023-02-12 09:17] MED LIST changes: -Aspirin 81 mg CHEW TAB* 81 MG TAB.CHEW ONE; +Buffered Lidocaine 1% SYRIN 1 ml INTRADERM ONE; -Clopidogrel TAB* 300 MG ONE; -Heparin 2 UNITS/ML IVPREMIX* 3,000 ML IV ONE; -Heparin(*) 1000 UNIT/ML 10 ML VIAL CATH LAB IV ONE; -Iohexol 350 (CONTRAST) 200 ML MDV IV ONE; -LORazepam TAB(*) 1 MG ONE; +Lactated Ringers 1000 ml BAG 1,000 ML IV SCH; -Lidocaine 1% INJ* 10 MG/ML 30 ML SDV ONE; -Metoprolol Tartrate IV* 1 MG/ML 5 ML VIAL ONE; -Midazolam* 1 MG/ML 5 ML VIAL (5 MG) ONE; -ceFAZolin 1 GM in Dextrose (*) 1 GM/50 ML BAG IVPB ONE; -fentaNYL* 50 MCG/ML 2 ML VIAL (100 MCG VIAL) ONE; -hydrALAZINE IV* 20 MG/ML VIAL ONE
[2023-02-12] MEDS ORDERED: Chlorhexidine MOUTHWASH 0.12% 15 ML UDC ONE (09:33)
[2023-02-12] MEDS ORDERED: ceFAZolin 2 GM in NS PREMIX 2 GM/100 ML BAG IVPB ONE (09:33)
[2023-02-12 10:06] LABS: Rapid COVID-19 Molecular Undetected (Undetected)
[2023-02-12] MEDS ORDERED: Propofol 10 MG/ML 20 ML BTL ONE (10:30)
[2023-02-12] MEDS ORDERED: Dexamethasone IV 4 MG/ML VIAL 1 ml VIAL ONE ×2 (10:30)
[2023-02-12] MEDS ORDERED: Ondansetron 4 mg VIAL 2 MG/ML 2 ml VIAL ONE ×2 (10:30→16:34)
[2023-02-12] MEDS ORDERED: fentaNYL 250 mcg/5 ml 50 MCG/ML 5 ml VIAL (250 MCG) ONE (10:30)
[2023-02-12] MEDS ORDERED: Rocuronium 50 mg VIAL 10 mg/ml 5 ml VIAL (50 mg) ONE ×3 (10:30→14:31)
[2023-02-12] MEDS ORDERED: Midazolam 2 mg/2 ml VIAL 1 mg/ml 2 ml VIAL (2 mg) ONE (10:30)
[2023-02-12] MEDS ORDERED: Lidocaine 2% PF 5 ML VIAL ONE (10:30)
[2023-02-12] MEDS ORDERED: Acetaminophen IV 1 GM/100ML 1,000 MG/100 ML BAG IV ONE (11:49)
[2023-02-12] MEDS ORDERED: Gelfoam Sponge SIZE 100 SPONGE ONE (11:51)
[2023-02-12] MEDS ORDERED: Thrombin 5,000 UNITS 1 APPLIC KIT - topical use - TOPICAL ONE (11:51)
[2023-02-12] MEDS ORDERED: ceFAZolin VIAL VIAL ONE (11:51)
[2023-02-12] MEDS ORDERED: Lidocaine 1% w EPI 1:200,000 SDV 30 ML VIAL ONE (11:51)
[2023-02-12] MEDS ORDERED: Naloxone 0.4 mg VIAL 0.4 mg/ml 1 ml VIAL IV PRN (12:17)
[2023-02-12] MEDS ORDERED: Ondansetron 4 mg VIAL 2 MG/ML 2 ml VIAL IV PRN ×2 (12:17→16:21)
[2023-02-12] MEDS ORDERED: fentaNYL 100 mcg/2 ml 50 MCG/ML VIAL IV PRN (12:17)
[2023-02-12] MEDS ORDERED: HYDROmorphone 0.5 MG/0.5 ML SYRINGE ONE (15:43)
[2023-02-12] MEDS ORDERED: HYDROcodone/ACETAMIN 5/325 mg TAB PO PRN (16:21)
[2023-02-12] MEDS ORDERED: Senna TAB 8.6 mg TAB PO PRN (16:21)
[2023-02-12] MEDS ORDERED: Calcium Carb (TUMS) 500 mg CHEW TAB PO PRN (16:21)
[2023-02-12] MEDS ORDERED: Morphine 2 MG/ML SYRINGE IV PRN (16:21)
[2023-02-12] MEDS ORDERED: fentaNYL 100 mcg/2 ml 50 MCG/ML VIAL ONE (16:40)
[2023-02-12] MEDS ORDERED: Lactated Ringers 1000 ml BAG 1,000 ML IV SCH (17:00)
[2023-02-12] MEDS: HYDROcodone/ACETAMIN 5/325 mg TAB PO PRN (19:54)
[2023-02-13] MEDS: HYDROcodone/ACETAMIN 5/325 mg TAB PO PRN ×3 (00:06→14:18)
[2023-02-13] MEDS ORDERED: Lisinopril/HCTZ 20/25 TAB (NF) PO SCH (09:00)
[2023-02-14] MEDS: HYDROcodone/ACETAMIN 5/325 mg TAB PO PRN ×4 (00:23→15:53)
[2023-02-14 02:55] LABS: Hematocrit 30.8 % (38-53); Hemoglobin 10.8 g/dL (13.2-16.3)
[2023-02-15] MEDS: HYDROcodone/ACETAMIN 5/325 mg TAB PO PRN ×2 (00:20→07:50)
[2023-02-15 09:50] VITALS: BP 115/67
== END 2023-02-15 11:54 | disposition home or self-care (01) | DRG 460 ==
LOC: AA 09:17 → INTOOBSV 09:17 → EDSTATUS 11:30 → SSU 18:13
PROVIDERS: ADMIT Neurological Surgery; ATTEND Neurological Surgery

== ENCOUNTER 2023-02-22 12:41 | Inpatient (IN) ==
[2023-02-22] MEDS ORDERED: Dexamethasone IV 4 MG/ML VIAL 1 ml VIAL IV SLOW PU ONE (15:40)
[2023-02-22] MEDS ORDERED: Ondansetron 4 mg VIAL 2 MG/ML 2 ml VIAL IV ONE (15:41)
[2023-02-22 17:36] LABS: Hematocrit 30.8 % (38-53); Hemoglobin 10.9 g/dL (13.2-16.3); Mean Corpuscular Hemoglobin 32.1 pg (27-33); Mean Corpuscular Hgb Conc 35.2 g/dL (31-36); Mean Corpuscular Volume 91.3 fL (80-97); Mean Platelet Volume 6.4 fL (7.5-11.2); Platelet Count 413 10^3/uL (150-450); Red Blood Count 3.38 10^6/uL (4.06-5.63); Red Cell Distribution Width 13.2 % (12-17); White Blood Count 9.3 10^3/uL (3.6-10.2)
[2023-02-22 17:51] LABS: C Reactive Protein 6.38 mg/L (<8.01); Calcium 9.9 mg/dL (8.6-10.3); Creatinine, Serum 0.8 mg/dL (0.67-1.17); eGFR CKD-EPI 97.6 (>60)
[2023-02-22] MEDS ORDERED: Morphine 2 MG/ML SYRINGE IV ONE ×2 (18:36→20:00)
[2023-02-22] MEDS ORDERED: Morphine 4 MG/ML VIAL (1 ml) IV ONE (18:58)
[2023-02-22] MEDS ORDERED: Lactated Ringers 1000 ml BAG 1,000 ML IV ONE (21:45)
[2023-02-22] MEDS ORDERED: Ondansetron 4 mg VIAL 2 MG/ML 2 ml VIAL IV PRN (21:52)
[2023-02-23 06:12] LABS: ABS Lymphocytes 0.7 10^3/uL (1.0-4.8); ABS Monocytes 0.7 10^3/uL (0.0-1.1); ABS Neutrophils 8.1 10^3/uL (1.5-7.6); Hematocrit 28.7 % (38-53); Hemoglobin 10.3 g/dL (13.2-16.3); Lymphocyte % 7.2 %; Mean Corpuscular Hemoglobin 32.6 pg (27-33); Mean Corpuscular Hgb Conc 35.9 g/dL (31-36); Mean Corpuscular Volume 90.8 fL (80-97); Mean Platelet Volume 6.9 fL (7.5-11.2); Platelet Count 388 10^3/uL (150-450); Red Blood Count 3.17 10^6/uL (4.06-5.63); Red Cell Distribution Width 13.2 % (12-17); White Blood Count 9.5 10^3/uL (3.6-10.2)
[2023-02-23 06:30] LABS: Albumin 4.2 g/dL (3.2-5.2); Albumin/Globulin Ratio 1.4 (1-3); Creatinine, Serum 0.78 mg/dL (0.67-1.17); Potassium 4.6 mmol/L (3.5-5.0); Total Bilirubin 0.5 mg/dL (0.2-1.0); Total Protein 7.2 g/dL (6.4-8.9); eGFR CKD-EPI 98.4 (>60)
[2023-02-23] MEDS: oxyCODONE/Acetamin 5/325 mg TAB PO PRN ×3 (07:50→21:49)
[2023-02-23] MEDS: Polyethylene Glycol 3350 17 GM PACKET PO PRN (08:37)
[2023-02-23] MEDS: Senna TAB 8.6 mg TAB PO PRN (08:37)
[2023-02-23] MEDS ORDERED: Lisinopril/HCTZ 20/25 TAB (NF) PO SCH (09:00)
[2023-02-23] MEDS ORDERED: Dexamethasone IV 4 MG/ML VIAL 1 ml VIAL IV SLOW PU ONE (10:00)
[2023-02-23 12:53] LABS: Urine Appearance Clear; Urine Bilirubin Negative (Negative); Urine Blood Negative (Negative); Urine Color Yellow; Urine Glucose Negative (Negative); Urine Ketones Negative (Negative); Urine Nitrite Negative (Negative); Urine Protein Negative (Negative); Urine Specific Gravity 1.009 (1.002-1.030); Urine Urobilinogen Negative (Negative)
[2023-02-23] MEDS: Enoxaparin 40 MG/0.4 ML SYR SUBCUT SCH (18:00)
[2023-02-24] MEDS: oxyCODONE/Acetamin 5/325 mg TAB PO PRN ×5 (04:29→20:15)
[2023-02-24 05:46] LABS: ABS Lymphocytes 1.8 10^3/uL (1.0-4.8); Eosinophil % 0.3 %; Hematocrit 27.4 % (38-53); Hemoglobin 9.8 g/dL (13.2-16.3); Lymphocyte % 20.2 %; Mean Corpuscular Hemoglobin 32.6 pg (27-33); Mean Corpuscular Hgb Conc 35.8 g/dL (31-36); Mean Corpuscular Volume 91.1 fL (80-97); Mean Platelet Volume 6.4 fL (7.5-11.2); Platelet Count 352 10^3/uL (150-450); Red Blood Count 3.01 10^6/uL (4.06-5.63); Red Cell Distribution Width 13.2 % (12-17); White Blood Count 8.9 10^3/uL (3.6-10.2)
[2023-02-24 06:05] LABS: Calcium 9.6 mg/dL (8.6-10.3); Creatinine, Serum 0.83 mg/dL (0.67-1.17); Potassium 4.3 mmol/L (3.5-5.0); eGFR CKD-EPI 96.5 (>60)
[2023-02-24] MEDS: Senna TAB 8.6 mg TAB PO PRN (09:11)
[2023-02-24] MEDS: Polyethylene Glycol 3350 17 GM PACKET PO PRN (12:46)
[2023-02-24] MEDS: Enoxaparin 40 MG/0.4 ML SYR SUBCUT SCH (16:39)
[2023-02-24 17:05] LABS: Urine Appearance Clear; Urine Bilirubin Negative (Negative); Urine Blood Negative (Negative); Urine Color Straw; Urine Glucose Negative (Negative); Urine Ketones Negative (Negative); Urine Nitrite Negative (Negative); Urine Protein Negative (Negative); Urine Specific Gravity 1.008 (1.002-1.030); Urine Urobilinogen Negative (Negative)
[2023-02-25] MEDS: oxyCODONE/Acetamin 5/325 mg TAB PO PRN ×6 (04:37→17:21)
[2023-02-25 05:59] LABS: Hematocrit 30.4 % (38-53); Hemoglobin 10.8 g/dL (13.2-16.3); Mean Corpuscular Hemoglobin 32.5 pg (27-33); Mean Corpuscular Hgb Conc 35.6 g/dL (31-36); Mean Corpuscular Volume 91.4 fL (80-97); Mean Platelet Volume 6.8 fL (7.5-11.2); Platelet Count 412 10^3/uL (150-450); Red Blood Count 3.32 10^6/uL (4.06-5.63); Red Cell Distribution Width 13.4 % (12-17); White Blood Count 9.2 10^3/uL (3.6-10.2)
[2023-02-25 06:20] LABS: ABS Basophils 0.1 10^3/uL (0.0-0.1); ABS Eosinophils 0.1 10^3/uL (0.0-0.5); ABS Lymphocytes 1.7 10^3/uL (1.0-4.8); ABS Neutrophils 6.4 10^3/uL (1.5-7.6); Eosinophil % 1.5 %
[2023-02-25 06:23] LABS: Calcium 9.4 mg/dL (8.6-10.3); Creatinine, Serum 0.87 mg/dL (0.67-1.17); Potassium 3.9 mmol/L (3.5-5.0); eGFR CKD-EPI 95.2 (>60)
[2023-02-25] MEDS: Enoxaparin 40 MG/0.4 ML SYR SUBCUT SCH (17:22)
[2023-02-25] MEDS: Morphine ER 15 mg TAB ** extended release PO SCH (19:37)
[2023-02-25] MEDS ORDERED: Senna TAB 8.6 mg TAB PO SCH (21:00)
[2023-02-26 05:43] LABS: Hematocrit 28.8 % (38-53); Hemoglobin 10.1 g/dL (13.2-16.3); Mean Corpuscular Hemoglobin 32.3 pg (27-33); Mean Corpuscular Hgb Conc 35.1 g/dL (31-36); Mean Corpuscular Volume 91.9 fL (80-97); Mean Platelet Volume 6.7 fL (7.5-11.2); Platelet Count 393 10^3/uL (150-450); Red Blood Count 3.13 10^6/uL (4.06-5.63); Red Cell Distribution Width 13.2 % (12-17)
[2023-02-26 06:06] LABS: Creatinine, Serum 0.93 mg/dL (0.67-1.17); Potassium 3.9 mmol/L (3.5-5.0); eGFR CKD-EPI 90.6 (>60)
[2023-02-26] MEDS: Morphine ER 15 mg TAB ** extended release PO SCH (07:32)
[2023-02-26] MEDS: oxyCODONE/Acetamin 5/325 mg TAB PO PRN (07:32)
[2023-02-26 12:10] LABS: Urine Appearance Clear; Urine Bilirubin Negative (Negative); Urine Blood Negative (Negative); Urine Color Yellow; Urine Glucose Negative (Negative); Urine Ketones Negative (Negative); Urine Nitrite Negative (Negative); Urine Protein Negative (Negative); Urine Specific Gravity 1.009 (1.002-1.030); Urine Urobilinogen Negative (Negative)
[2023-02-26 13:40] VITALS: BP 101/61
== END 2023-02-26 15:35 | disposition home or self-care (01) | DRG 948 ==
LOC: ED 12:41 → INTOOBSV 21:52 → SUATTDRO 21:52 → EDHOLD 21:52 → MED 02-23 00:52
PROVIDERS: ADMIT Internal Medicine; ATTEND Internal Medicine

== ENCOUNTER 2023-11-26 13:49 | Observation (INO) ==
[2023-11-26 14:47] LABS: ABS Basophils 0.1 10^3/uL (0.0-0.1); ABS Neutrophils 6.4 10^3/uL (1.5-7.6); Eosinophil % 0.4 %; Hematocrit 39.4 % (38-53); Hemoglobin 13.9 g/dL (13.2-16.3); Lymphocyte % 12.1 %; Mean Corpuscular Hemoglobin 32.6 pg (27-33); Mean Corpuscular Hgb Conc 35.3 g/dL (31-36); Mean Corpuscular Volume 92.3 fL (80-97); Mean Platelet Volume 6.7 fL (7.5-11.2); Platelet Count 240 10^3/uL (150-450); Red Blood Count 4.27 10^6/uL (4.06-5.63); Red Cell Distribution Width 14.2 % (12-17); White Blood Count 8.4 10^3/uL (3.6-10.2)
[2023-11-26 14:58] LABS: INR 0.96 (0.83-1.13)
[2023-11-26 15:32] LABS: Albumin 4.8 g/dL (3.2-5.2); Albumin/Globulin Ratio 1.9 (1-3); Calcium 9.9 mg/dL (8.6-10.3); Creatinine, Serum 0.94 mg/dL (0.67-1.17); Globulin 2.5 g/dL (2-4); Potassium 3.8 mmol/L (3.5-5.0); Total Bilirubin 1.1 mg/dL (0.2-1.0); Total Protein 7.3 g/dL (6.4-8.9); eGFR CKD-EPI 88.9 (>60)
[2023-11-26 16:13] LABS: High Sensitivity Troponin 1 Hr 12 pg/mL (<20)
[2023-11-26] MEDS: Ondansetron 4 mg VIAL 2 MG/ML 2 ml VIAL IV ONE (16:31)
[2023-11-26] MEDS: Lactated Ringers 1000 ml BAG 1,000 ML IV SCH (16:40)
[2023-11-26 16:51] LABS: Magnesium 1.8 mg/dL (1.9-2.7)
[2023-11-26] MEDS: Iohexol 350 (CONTRAST) 500 ML MDV IV ONE (17:01)
[2023-11-26] MEDS ORDERED: Senna TAB 8.6 mg TAB PO PRN (19:02)
[2023-11-26] MEDS ORDERED: Polyethylene Glycol 3350 17 GM PACKET PO PRN (19:02)
[2023-11-26] MEDS: Al Hydrox/Mg Hydrox/Simet LIQ 30 ML UDC PO PRN (19:19)
[2023-11-26] MEDS: Pantoprazole VIAL 40 MG VIAL IV SCH (19:21)
[2023-11-26 20:23] LABS: Magnesium 1.9 mg/dL (1.9-2.7)
[2023-11-26 21:24] LABS: High Sensitivity Troponin 1 Hr 13 pg/mL (<20)
[2023-11-26] MEDS: Enoxaparin 40 MG/0.4 ML SYR SUBCUT SCH (21:32)
[2023-11-26] MEDS: Morphine 2 MG/ML SYRINGE IV ONE (21:34)
[2023-11-26] MEDS: Lactated Ringers 1000 ml BAG 1,000 ML IV ONE (21:37)
[2023-11-26 22:38] LABS: Urine Osmo 309 mOsm/kg (150-1150)
[2023-11-26] MEDS: Albuterol/Ipratropium NEB.SOL (2.5/0.5 MG) 3 ML NEB.SOLN INH PRN (22:38)
[2023-11-26] MEDS: Thiamine 100 MG/ML 2 ml VIAL (200 mg) IM ONE (22:41)
[2023-11-26] MEDS: Multivitamins/Minerals TAB PO SCH (22:44)
[2023-11-26] MEDS: Ondansetron 4 mg VIAL 2 MG/ML 2 ml VIAL IV PRN (23:50)
[2023-11-27 07:08] LABS: Hematocrit 34.4 % (38-53); Hemoglobin 11.7 g/dL (13.2-16.3); Mean Corpuscular Hgb Conc 34.1 g/dL (31-36); Mean Corpuscular Volume 93.8 fL (80-97); Mean Platelet Volume 6.7 fL (7.5-11.2); Platelet Count 204 10^3/uL (150-450); Red Blood Count 3.67 10^6/uL (4.06-5.63); Red Cell Distribution Width 14.7 % (12-17)
[2023-11-27 07:30] LABS: Albumin/Globulin Ratio 1.9 (1-3); Calcium 9.2 mg/dL (8.6-10.3); Creatinine, Serum 0.98 mg/dL (0.67-1.17); Globulin 2.1 g/dL (2-4); Potassium 4.1 mmol/L (3.5-5.0); Total Bilirubin 1.1 mg/dL (0.2-1.0); Total Protein 6.1 g/dL (6.4-8.9); eGFR CKD-EPI 84.5 (>60)
[2023-11-27] MEDS ORDERED: Regadenoson 0.4 MG/5 ML SYRINGE ONE (09:22)
[2023-11-27] MEDS: Al Hydrox/Mg Hydrox/Simet LIQ 30 ML UDC PO ONE (16:39)
[2023-11-27] MEDS: Pantoprazole VIAL 40 MG VIAL IV ONE (16:40)
[2023-11-28 01:45] LABS: High Sensitivity Troponin 1 Hr 5 pg/mL (<20)
[2023-11-28 08:06] LABS: ABS Basophils 0.1 10^3/uL (0.0-0.1); ABS Monocytes 0.8 10^3/uL (0.0-1.1); ABS Neutrophils 4.1 10^3/uL (1.5-7.6); ABS Nucleated RBC 0.01 10^3/ul; Eosinophil % 0.7 %; Hematocrit 34.6 % (38-53); Hemoglobin 11.9 g/dL (13.2-16.3); Lymphocyte % 16.3 %; Mean Corpuscular Hgb Conc 34.3 g/dL (31-36); Mean Corpuscular Volume 93.2 fL (80-97); Mean Platelet Volume 6.6 fL (7.5-11.2); Nucleated Red Blood Cells % 0.2 %/100WBC (0.0-0.8); Platelet Count 221 10^3/uL (150-450); Red Blood Count 3.72 10^6/uL (4.06-5.63); Red Cell Distribution Width 14.5 % (12-17)
[2023-11-28 08:49] LABS: Calcium 9.1 mg/dL (8.6-10.3); Creatinine, Serum 0.87 mg/dL (0.67-1.17); Potassium 4.2 mmol/L (3.5-5.0); eGFR CKD-EPI 94.6 (>60)
[2023-11-28] MEDS ORDERED: Al Hydrox/Mg Hydrox/Simet LIQ 30 ML UDC PO ONE (08:54)
[2023-11-28 14:13] VITALS: BP 108/60
== END 2023-11-28 14:50 | disposition home or self-care (01) ==
LOC: ED 13:49 → EDHOLD 13:49 → MEDTELE 20:41
PROVIDERS: ADMIT Internal Medicine; ATTEND Internal Medicine

== ENCOUNTER 2024-05-25 13:57 | Inpatient (IN) ==
[2024-05-25 15:55] LABS: ABS Basophils 0.1 10^3/uL (0.0-0.1); ABS Eosinophils 0.1 10^3/uL (0.0-0.5); ABS Monocytes 0.8 10^3/uL (0.0-1.1); ABS Neutrophils 7.2 10^3/uL (1.5-7.6); Eosinophil % 0.6 %; Hematocrit 40.2 % (38-53); Hemoglobin 13.5 g/dL (13.2-16.3); Lymphocyte % 10.8 %; Mean Corpuscular Hemoglobin 32.8 pg (27-33); Mean Corpuscular Hgb Conc 33.6 g/dL (31-36); Mean Corpuscular Volume 97.6 fL (80-97); Mean Platelet Volume 6.7 fL (7.5-11.2); Platelet Count 305 10^3/uL (150-450); Red Blood Count 4.11 10^6/uL (4.06-5.63); Red Cell Distribution Width 14.5 % (12-17); White Blood Count 9.1 10^3/uL (3.6-10.2)
[2024-05-25 16:42] LABS: Albumin 4.4 g/dL (3.2-5.2); Albumin/Globulin Ratio 1.6 (1-3); Calcium 9.2 mg/dL (8.6-10.3); Creatinine, Serum 0.95 mg/dL (0.67-1.17); Globulin 2.7 g/dL (2-4); Magnesium 1.8 mg/dL (1.9-2.7); Potassium 4.1 mmol/L (3.5-5.0); Total Bilirubin 0.5 mg/dL (0.2-1.0); Total Protein 7.1 g/dL (6.4-8.9); eGFR CKD-EPI 87.7 (>60)
[2024-05-25] MEDS: Lactated Ringers 1000 ml BAG 1,000 ML IV ONE ×2 (16:48→17:21)
[2024-05-25 16:56] LABS: TSH Ultra Thyroid Stim Horm 2.02 mcIU/mL (0.34-5.60)
[2024-05-25 16:59] LABS: Urine Appearance Clear; Urine Bilirubin Negative (Negative); Urine Blood Negative (Negative); Urine Color Light-Yellow; Urine Glucose Negative (Negative); Urine Ketones Negative (Negative); Urine Nitrite Negative (Negative); Urine Protein Negative (Negative); Urine Specific Gravity 1.011 (1.002-1.030); Urine Urobilinogen Negative (Negative); Urine pH 5.5 (5.0-8.0)
[2024-05-25] MEDS: Ondansetron 4 mg VIAL 2 MG/ML 2 ml VIAL IV ONE (17:21)
[2024-05-25 17:23] LABS: High Sensitivity Troponin 1 Hr 3 pg/mL (<20)
[2024-05-25] MEDS: Iohexol 350 (CONTRAST) 500 ML MDV IV ONE (17:52)
[2024-05-25] MEDS: Acetaminophen IV 1 GM/100ML 1,000 MG/100 ML BAG IV ONE (19:12)
[2024-05-25] MEDS: Morphine 4 MG/ML VIAL (1 ml) IV ONE (19:16)
[2024-05-25] MEDS ORDERED: Acetaminophen IV 1 GM/100ML 1,000 MG/100 ML BAG IV PRN (20:13)
[2024-05-25 21:14] LABS: INR 1.11 (0.85-1.14)
[2024-05-25] MEDS ORDERED: Naloxone 0.4 mg VIAL 0.4 mg/ml 1 ml VIAL IV PUSH PRN (22:09)
[2024-05-25] MEDS: Lactated Ringers 1000 ml BAG 1,000 ML IV SCH (22:54)
[2024-05-25] MEDS: Magnesium Sulfate 2 gm BAG 2 GM/50 ML BAG IVPB ONE (23:49)
[2024-05-26] MEDS: cefTRIAXone 2 gm/50 mL D5W 2 GM/50 ML BAG IV SCH ×2 (00:40→00:55)
[2024-05-26 05:42] LABS: C Reactive Protein 1.28 mg/L (<8.01)
[2024-05-26 06:51] LABS: ABS Basophils 0.1 10^3/uL (0.0-0.1); ABS Eosinophils 0.1 10^3/uL (0.0-0.5); ABS Lymphocytes 1.4 10^3/uL (1.0-4.8); ABS Monocytes 0.8 10^3/uL (0.0-1.1); ABS Neutrophils 5.4 10^3/uL (1.5-7.6); Eosinophil % 1.9 %; Hematocrit 34.3 % (38-53); Hemoglobin 11.8 g/dL (13.2-16.3); Lymphocyte % 17.4 %; Mean Corpuscular Hemoglobin 33.7 pg (27-33); Mean Corpuscular Hgb Conc 34.5 g/dL (31-36); Mean Corpuscular Volume 97.8 fL (80-97); Mean Platelet Volume 7.1 fL (7.5-11.2); Platelet Count 252 10^3/uL (150-450); Red Cell Distribution Width 14.3 % (12-17); White Blood Count 7.9 10^3/uL (3.6-10.2)
[2024-05-26 07:06] LABS: Anion Gap 7 mmol/L (2-16); Blood Urea Nitrogen 6 mg/dL (6-24); CO2 Carbon Dioxide 30 mmol/L (22-32); Calcium 8.6 mg/dL (8.6-10.3); Chloride 97 mmol/L (101-111); Creatinine, Serum 0.85 mg/dL (0.67-1.17); Glucose 95 mg/dL (70-100); Potassium 3.5 mmol/L (3.5-5.0); Sodium 134 mmol/L (135-145); eGFR CKD-EPI 95.2 (>60)
[2024-05-26] MEDS: metroNIDAZOLE IV 500 MG/100ML 500 MG/100 ML BAG IVPB SCH (10:33)
[2024-05-26] MEDS: Ondansetron 4 mg VIAL 2 MG/ML 2 ml VIAL IV PRN (14:40)
[2024-05-26] MEDS: Morphine 4 MG/ML VIAL (1 ml) IV PRN (14:44)
[2024-05-26] MEDS: Lactated Ringers 1000 ml BAG 1,000 ML IV SCH (14:53)
[2024-05-26] MEDS ORDERED: diPHENhydraMINE CREAM 2%(NF) 28 gm TUBE TOPICAL SCH (15:00)
[2024-05-26] MEDS: Hydrocortisone 0.5% OINT 1 TUBE TOPICAL SCH (16:43)
[2024-05-26] MEDS ORDERED: fentaNYL 100 mcg/2 ml 50 MCG/ML VIAL ONE (16:46)
[2024-05-26] MEDS ORDERED: Midazolam 10 mg/10 ml VIAL 1 mg/ml 10 ml VIAL (10 mg) ONE (16:46)
[2024-05-26] MEDS: HYDROCORTISONE 0.5% TOPICAL SCH (18:13)
[2024-05-26 19:39] LABS: Folate > 20.00 ng/mL (5.90-24.80)
[2024-05-26 19:40] LABS: Vitamin B12 251 pg/mL (180-914)
[2024-05-26 20:21] LABS: Hemoglobin 11.7 g/dL (13.2-16.3)
[2024-05-27 07:31] LABS: ABS Basophils 0.1 10^3/uL (0.0-0.1); ABS Eosinophils 0.2 10^3/uL (0.0-0.5); ABS Lymphocytes 0.9 10^3/uL (1.0-4.8); ABS Neutrophils 4.9 10^3/uL (1.5-7.6); Eosinophil % 2.3 %; Hematocrit 33.2 % (38-53); Hemoglobin 11.3 g/dL (13.2-16.3); Lymphocyte % 13.2 %; Mean Corpuscular Hemoglobin 33.5 pg (27-33); Mean Corpuscular Volume 98.7 fL (80-97); Platelet Count 224 10^3/uL (150-450); Red Blood Count 3.37 10^6/uL (4.06-5.63); Red Cell Distribution Width 14.3 % (12-17); White Blood Count 7.1 10^3/uL (3.6-10.2)
[2024-05-27 07:59] LABS: Calcium 8.5 mg/dL (8.6-10.3); Creatinine, Serum 0.85 mg/dL (0.67-1.17); Magnesium 1.8 mg/dL (1.9-2.7); Phosphorus 3.4 mg/dL (2.5-5.0); Potassium 3.9 mmol/L (3.5-5.0); eGFR CKD-EPI 95.2 (>60)
[2024-05-27] MEDS: Magnesium Sulfate 2 gm BAG 2 GM/50 ML BAG IVPB ONE (13:03)
[2024-05-27] MEDS: Magnesium Hydroxide LIQ 30 ML UDC PO ONE (17:38)
[2024-05-27] MEDS: Senna TAB 8.6 mg TAB PO PRN (20:18)
[2024-05-28 06:11] LABS: ABS Eosinophils 0.2 10^3/uL (0.0-0.5); ABS Lymphocytes 0.8 10^3/uL (1.0-4.8); ABS Monocytes 0.8 10^3/uL (0.0-1.1); ABS Neutrophils 4.1 10^3/uL (1.5-7.6); Eosinophil % 3.5 %; Hematocrit 34.4 % (38-53); Hemoglobin 11.6 g/dL (13.2-16.3); Lymphocyte % 13.5 %; Mean Corpuscular Hemoglobin 33.6 pg (27-33); Mean Corpuscular Hgb Conc 33.8 g/dL (31-36); Mean Corpuscular Volume 99.4 fL (80-97); Mean Platelet Volume 6.9 fL (7.5-11.2); Platelet Count 237 10^3/uL (150-450); Red Blood Count 3.46 10^6/uL (4.06-5.63); Red Cell Distribution Width 14.1 % (12-17); White Blood Count 5.9 10^3/uL (3.6-10.2)
[2024-05-28 06:39] LABS: Calcium 8.8 mg/dL (8.6-10.3); Creatinine, Serum 0.83 mg/dL (0.67-1.17); Magnesium 2.2 mg/dL (1.9-2.7); Potassium 3.8 mmol/L (3.5-5.0); eGFR CKD-EPI 95.9 (>60)
[2024-05-28] MEDS ORDERED: Magnesium Hydroxide LIQ 30 ML UDC PO PRN (09:00)
[2024-05-28 14:39] LABS: Act Protein C Resist Ratio 2.4 (>or=2.3)
[2024-05-28] MEDS: Prochlorperazine 5 mg/ml 2 ml VIAL (10 mg) IV PRN (15:14)
[2024-05-28 15:37] LABS: Protein C Activity 112 % (70 - 150)
[2024-05-28 16:14] LABS: Protein S Activity, P 111 % (65-150)
[2024-05-29 07:00] LABS: ABS Eosinophils 0.2 10^3/uL (0.0-0.5); ABS Lymphocytes 0.7 10^3/uL (1.0-4.8); ABS Monocytes 0.7 10^3/uL (0.0-1.1); Eosinophil % 3.7 %; Hematocrit 34.3 % (38-53); Hemoglobin 11.7 g/dL (13.2-16.3); Lymphocyte % 15.8 %; Mean Corpuscular Hemoglobin 33.9 pg (27-33); Mean Corpuscular Volume 99.9 fL (80-97); Mean Platelet Volume 6.8 fL (7.5-11.2); Platelet Count 246 10^3/uL (150-450); Red Blood Count 3.44 10^6/uL (4.06-5.63); White Blood Count 4.7 10^3/uL (3.6-10.2)
[2024-05-29 07:38] LABS: Calcium 8.6 mg/dL (8.6-10.3); Creatinine, Serum 0.82 mg/dL (0.67-1.17); Potassium 4.3 mmol/L (3.5-5.0); eGFR CKD-EPI 96.3 (>60)
[2024-05-29] MEDS: metroNIDAZOLE IV 500 MG/100ML 500 MG/100 ML BAG IVPB SCH (12:57)
[2024-05-29 14:56] LABS: Ferritin 66.7 ng/mL (24-336)
[2024-05-29 15:18] LABS: Phospholipid Ab IgG < 9.4 GPL; Phospholipid Ab IgM, S 19.1 MPL
[2024-05-30] MEDS: cefTRIAXone 2 gm/50 mL D5W 2 GM/50 ML BAG IV SCH (07:02)
[2024-05-30 13:55] VITALS: BP 145/96
[2024-06-01 10:27] LABS: Factor V Leiden Mutation Negative (Negative); Prothrombin 20210 Mutation Negative (Negative)
== END 2024-05-30 14:15 | disposition home or self-care (01) | DRG 394 ==
LOC: ED 13:57 → EDHOLD 13:57 → OBSVTOIN 20:13 → SUATTDRO 20:13 → MED 21:26
PROVIDERS: ADMIT Internal Medicine; ATTEND Internal Medicine